=== PATIENT | male | born 1935 | race Caucasian/White ===

== ENCOUNTER 2017-02-09 09:54 | Inpatient (IN) | payer OTHER, MEDICAID ==
[~2017-02-09] VITALS: Ht 175.3 cm; Wt 75.6 kg
[2017-02-09] MEDS ORDERED: SOD CHLORIDE 0.9% 500 ML IV STA (10:03)
[2017-02-09] MEDS ORDERED: ACET-2047 PO ×2 (10:14→10:15)
[2017-02-09] MEDS ORDERED: ASPI-664 PO (10:15)
[2017-02-09] MEDS ORDERED: CARV3.1260 PO (10:16)
[2017-02-09] MEDS ORDERED: ATOR80TA75 PO (10:16)
[2017-02-09] MEDS ORDERED: MULTI PO (10:17)
[2017-02-09] MEDS ORDERED: DOCU-159 PO (10:17)
[2017-02-09] MEDS ORDERED: HYDR-906 PO (10:18)
[2017-02-09] MEDS ORDERED: LIDOCAINE 2% 20 ML UROJET SYRINGE MM ONE (10:30)
[2017-02-09 10:35] LABS: ADD SCAN DIFF NO
[2017-02-09 10:52] LABS: ALBUMIN 4.3 g/dl (3.3-4.9)
[2017-02-09 10:53] LABS: POTASSIUM 3.8 mmol/L (3.5-5.1)
[2017-02-09 10:55] LABS: BILIRUBIN,INDIRECT 0.5 mg/dl (0-1.1); BILIRUBIN,TOTAL 0.5 mg/dl (0.2-1.3); CREATININE 0.82 mg/dl (0.61-1.24)
[2017-02-09 10:56] LABS: ALBUMIN/GLOBULIN RATIO 1.34; CALCIUM 9.6 mg/dl (8.4-10.2); TOTAL PROTEIN 7.5 g/dl (6.1-8.1)
[2017-02-09 11:00] LABS: INR 1.14; PROTIME 14.6 Sec (12.2-14.2); PT RATIO 1.1
[2017-02-09 11:01] LABS: PARTIAL THROMBOPLASTIN TIME 29.5 Sec (25.0-35.0)
[2017-02-09 11:12] LABS: BASOPHILS % 0.1 % (0.0-2.0); EOSINOPHILS # 0.1 10^3/ul (0.0-0.5); EOSINOPHILS % 1.3 % (0.0-7.0); LYMPHOCYTES # 1.2 10^3/ul (0.8-2.9); LYMPHOCYTES % 17.8 % (15.0-51.0); MEAN CORPUSCULAR HEMOGLOBIN 30.8 pg (29.0-33.0); MEAN CORPUSCULAR HGB CONC 33.3 g/dl (32.0-37.0); MEAN CORPUSCULAR VOLUME 92.4 fl (82.0-101.0); MEAN PLATELET VOLUME 10.8 fl (7.4-10.4); MONOCYTE # 0.5 10^3/ul (0.3-0.9); MONOCYTES % 7.6 % (0.0-11.0); NEUTROPHIL # 4.9 10^3/ul (1.6-7.5); NEUTROPHILS % 72.9 % (39.0-77.0); PLATELET COUNT 152 10^3/UL (140-415); RED BLOOD COUNT 4.22 10^6/ul (4.70-6.10); RED CELL DISTRIBUTION WIDTH 13.3 % (11.5-14.5); WHITE BLOOD COUNT 6.7 10^3/ul (4.8-10.8)
[2017-02-09 11:32] LABS: ADD UMIC YES; URINE BILIRUBIN (Dip) NEGATIVE (NEGATIVE); URINE BLOOD (Dip) 3+ (NEGATIVE); URINE COLOR LT. RED (YELLOW); URINE GLUCOSE (Dip) NEGATIVE (NEGATIVE); URINE KETONES (Dip) NEGATIVE (NEGATIVE); URINE LEUKOCYTE ESTERASE (Dip) NEGATIVE (NEGATIVE); URINE NITRITE (Dip) POSITIVE (NEGATIVE); URINE TOTAL PROTEIN (Dip) 4+ (NEGATIVE); URINE UROBILINOGEN (Dip) 1.0 E.U./dL (0.1-1.0)
[2017-02-09 11:45] LABS: BACTERIA,URINE MANY; SQUAMOUS EPITHELIAL CELL,UR FEW; URINE RBCS >50 /HPF (0)
[2017-02-09] MEDS ORDERED: SOD CHLORIDE 0.9% 1,000 ML IV SCH (11:59)
--- NOTE | 2017-02-09 11:59 | ERA ---
ER Documentation Chief Complaint Date/Time DATE: 02/09/17 TIME: 11:56 Chief Complaint hematuria last night; no other symptoms or complaints HPI This is an 81-year-old male presents to the emergency room after being brought in by ambulance from his nursing facility for evaluation of blood in the urine. The patient denies any pain, denies any fevers or chills and was brought to the emergency room for evaluation. ROS All systems reviewed and are negative except as per history of present illness. Medications Home Meds Reported Medications Hydrocodone/Acetaminophen ([place] 5-325 Tablet) 1 Each Tablet, 1 EACH PO Q6 Y for MOD, TAB HOLD FOR SEDATION HOLD IF RR IS 12 OR BELOW AND NOTIFY MD/HOG SCRAPER 02/09/17 Multivitamins* (Theragran*) 1 Tab Tab, 1 TAB PO DAILY, TAB 02/09/17 Docusate Sodium* (Docusate Sodium*) 100 Mg Capsule, 100 MG PO BID Y for CONSTIPATION, #60 CAP 02/09/17 Carvedilol* (Carvedilol*) 3.125 Mg Tablet, 3.125 MG PO BID, #60 TAB 02/09/17 Atorvastatin* (Atorvastatin*) 80 Mg Tablet, 80 MG PO QHS, #30 TAB 02/09/17 Aspirin (Low Dose Aspirin) 81 Mg Tablet.dr, 81 MG PO DAILY, #30 TAB 02/09/17 Acetaminophen* (Acetaminophen*) 650 Mg Tablet, 650 MG PO Q4 Y for ELEVATED TEMPERATURE, #30 TAB 02/09/17 Acetaminophen* (Acetaminophen*) 650 Mg Tablet, 650 MG PO Q4 Y for MILD PAIN LEVEL 1-3, #30 TAB 02/09/17 Allergies Allergies: Coded Allergies: fish derived (Verified Allergy, Unknown, 02/09/17) shellfish derived (Verified Allergy, Unknown, 02/09/17) PMhx/Soc Medical and Surgical Hx: pt denies Surgical Hx Hx 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 Disorder: No Hx Respiratory Disorders: No Hx Cardiac Disorders: Yes (mi, htn, ) Hx Miscellaneous Medical Probl: Yes (kidney ds; dm; ) Hx Alcohol Use: No Hx Substance Use: No Hx Tobacco Use: No Smoking Status: Never smoker Physical Exam Vitals Vital Signs Date Time Temp Pulse Resp B/P Pulse Ox O2 Delivery O2 Flow Rate FiO2 02/09/17 10:02 98.3 87 16 121/73 99 Physical Exam Const: No acute distress Head: Atraumatic Eyes: Normal Conjunctiva ENT: Normal External Ears, Nose and Mouth. Neck: Full range of motion..~ No meningismus. Resp: Clear to auscultation bilaterally Cardio: Regular rate and rhythm, no murmurs Abd: Soft, non tender, non distended. Normal bowel sounds Skin: No petechiae or rashes Back: No midline or flank tenderness Ext: No cyanosis, or edema Neur: Awake and alert Psych: Normal Mood and Affect Result Diagram: 02/09/17 1020 02/09/17 1020 Results 24 hrs Laboratory Tests Test 02/09/17 10:20 02/09/17 10:55 White Blood Count 6.710^3/ul Red Blood Count 4.2210^6/ul Hemoglobin 13.0g/dl Hematocrit 39.0% Mean Corpuscular Volume 92.4fl Mean Corpuscular Hemoglobin 30.8pg Mean Corpuscular Hemoglobin Concent 33.3g/dl Red Cell Distribution Width 13.3% Platelet Count 89478^3/UL Mean Platelet Volume 10.8fl Neutrophils % 72.9% Lymphocytes % 17.8% Monocytes % 7.6% Eosinophils % 1.3% Basophils % 0.1% Nucleated Red Blood Cells % 0.0/100WBC Neutrophils # 4.910^3/ul Lymphocytes # 1.210^3/ul Monocytes # 0.510^3/ul Eosinophils # 0.110^3/ul Basophils # 0.010^3/ul Nucleated Red Blood Cells # 0.010^3/ul Prothrombin Time 14.6Sec Prothrombin Time Ratio 1.1 INR International Normalized Ratio 1.14 Activated Partial Thromboplast Time 29.5Sec Sodium Level 143mmol/L Potassium Level 3.8mmol/L Chloride Level 98mmol/L Carbon Dioxide Level 30mmol/L Anion Gap 19 Blood Urea Nitrogen 17mg/dl Creatinine 0.82mg/dl Glucose Level 96mg/dl Calcium Level 9.6mg/dl Total Bilirubin 0.5mg/dl Direct Bilirubin 0.00mg/dl Indirect Bilirubin 0.5mg/dl Aspartate Amino Transf (AST/SGOT) 33IU/L Alanine Aminotransferase (ALT/SGPT) 46IU/L Alkaline Phosphatase 79IU/L Total Protein 7.5g/dl Albumin 4.3g/dl Globulin 3.20g/dl Albumin/Globulin Ratio 1.34 Lipase 42U/L Urine Color LT. RED Urine Clarity CLEAR Urine pH 7.0 Urine Specific [place] 1.020 Urine Ketones NEGATIVE Urine Nitrite POSITIVE Urine Bilirubin NEGATIVE Urine Urobilinogen 1.0 E.U./dL Urine Leukocyte Esterase NEGATIVE Urine Microscopic RBC >50/HPF Urine Microscopic WBC 5-10/HPF Urine Squamous Epithelial Cells FEW Urine Bacteria MANY Urine Hemoglobin 3+ Urine Glucose NEGATIVE% Urine Total Protein 4+ Current Medications Medications (Trade) Dose Ordered Sig/Meli Route PRN Reason Start Time Stop Time Status Last Admin Dose Admin Sodium Chloride (NS) 500 ml @ 500 mls/hr Q1H STAT IV 02/09/17 10:03 02/09/17 11:02 DC 02/09/17 10:55 Lidocaine 20 ml 20 ml ONCE ONCE MM 02/09/17 10:30 02/09/17 10:31 DC 02/09/17 10:55 Ceftriaxone Sodium (Rocephin) 50 ml @ 100 mls/hr ONCE ONCE IVPB 02/09/17 12:00 02/09/17 12:29 UNV Procedures/MDM This 81-year-old male presents to the emergency room for evaluation of hematuria. When I evaluated this patient he was hemodynamically stable. Lab work was obtained including a urinalysis which does show nitrite positive urine with gross hematuria. This patient is denying any flank pain or back pain at this time. I have contacted his primary care physician, and given the patient' s age this patient will be admitted at this time for further imaging and workup to rule out any malignancy causing gross hematuria. Urine culture was obtained and the patient was started on Rocephin. This patient will be admitted under the care of Departure Diagnosis: Primary Impression: Hematuria Additional Impressions: Acute cystitis Normocytic anemia Condition: Stable AUGUSTUS FREDERICK DO February 09, 2017 11:59
[2017-02-09] MEDS ORDERED: ACETAMINOPHEN 325 MG TAB PO PRN ×2 (12:00→15:30)
[2017-02-09] MEDS ORDERED: CEFTRIAXONE 1 GM/50 ML (PMX) 50 ML IVPB ONE (12:00)
[2017-02-09] MEDS ORDERED: ONDANSETRON 4 MG INJ IV PRN (12:00)
[2017-02-09 12:10] VITALS: TEMP 97.8
[2017-02-09 13:53] VITALS: BP 114/69; RESP 18
[2017-02-09 14:49] VITALS: Ht 175.3 cm; Wt 75.6 kg
[2017-02-09] MEDS ORDERED: DOCUSATE SODIUM 100 MG CAP PO PRN (15:30)
[2017-02-09] MEDS ORDERED: BARIUM SULF 2% 450 ML BTL (BERRY SMOOTHIE) PO ONE (15:30)
--- NOTE | 2017-02-09 16:01 | HP ---
DATE OF ADMISSION: 02/09/2017 CHIEF COMPLAINT: Hematuria. HISTORY OF PRESENT ILLNESS: The patient is an 81-year-old gentleman well known to me. The patient has history of coronary artery disease status post non-ST elevation myocardial infarction, ischemic cardiomyopathy, hypertension, and dyslipidemia. The patient came to the ER. The patient is a resid ent of a halfway facility and was noted to have hematuria. The patient did not have any fev er or chills. No reported abdominal pain. No reported flank pain. No reported dysuria. The patie nt did not have any leg edema. The patient denies any anginal chest pain. The patient was not orth opneic and was not short of breath at rest. The patient has remained awake, alert, denies any previ ous history of similar illness. The patient was seen in the ER and was noted to have a normal white count of 6.7, hemoglobin was 13. Renal functions were normal. The patient's UA was positive for n itrite and had more than 50 RBCs, 5 to 10 WBC, many bacteria. Leukocyte esterase, however, was nega tive. The patient is being admitted for further evaluation and management. REVIEW OF SYSTEMS: As above. In addition, the patient denies any history of stroke in the past. N o history of cough. No history of focal weakness. No history of rectal bleed. No history of vomit ing or diarrhea. The patient does not have any leg edema. No resting pain in lower extremities. T he rest of review of systems unremarkable. MEDICATIONS: Please see transfer LONNIE from halfway facility. ALLERGIES: NONE. SOCIAL HISTORY: The patient used to drink beer and hard liquor; quit about 4 years ago. FAMILY HISTORY: Negative. PHYSICAL EXAMINATION: GENERAL: The patient is conscious, awake, alert, fairly oriented. VITAL SIGNS: Temperature 98.3, pulse 79, respirations 18, blood pressure 114/69, O2 saturation 97% on room air. HEENT: Atraumatic, normocephalic. Conjunctivae and lids normal. Oropharynx clear. NECK: Supple. No mass, no thyromegaly. CHEST: Fairly clear. No use of accessory muscles. CARDIOVASCULAR: S1, S2 normal. No murmur, gallop, or rub. ABDOMEN: Soft, nondistended, nontender. Bowel sounds plus. EXTREMITIES: No leg edema. Pedal pulses palpable. SKIN: Without acute rash or ulcer. NEUROLOGIC: The patient is awake, alert, fairly oriented with no gross focal deficit. LABORATORY DATA: As above. In addition, sodium 143, potassium 3.8, BUN 17, creatinine 0.8. Liver enzymes normal. IMPRESSION: 1. Hematuria. 2. Coronary artery disease status post non-ST elevation myocardial infarction with ischemic cardiom yopathy. 3. Hypertension. 4. Dyslipidemia. PLAN: The patient will be continued on Coreg and Lipitor, and we will add small dose of TAO inhibit or. We will also empirically start the patient on Rocephin after sending urine culture. We will ob tain CT of the abdomen and pelvis. We will hold off on aspirin, and we will also hold off on Loveno x for DVT prophylaxis. We will use SCD for now. A urology consult from Dr. Muhammad will be tanner d. We will also obtain echocardiogram to assess LV function. Further recommendations will depend o n patient's hospital course. Dictated By: JOHN HAN/ARCHIE Conf#: [id number] DID#: [id number]
[2017-02-09] MEDS: LISINOPRIL 5 MG TAB PO SCH (16:44)
[2017-02-09 20:08] VITALS: BP 117/63; RESP 18
[2017-02-09] MEDS: ATORVASTATIN 80 MG TAB PO SCH (20:52)
--- NOTE | 2017-02-09 21:00 | CONS ---
DATE OF ADMISSION: 02/09/2017 DATE OF CONSULTATION: 02/09/2017 REQUESTING PHYSICIAN: John Sanders MD Dear Dr. Sanders: Thank you for asking me to see this patient in urological consultation. HISTORY OF PRESENT ILLNESS: This is an 81-year-old male who is a resident of a [facility] and was brought to the emergency room at [facility] because of gross hematuri a. Therefore, a urological consultation was requested. The patient denies having any fever or chil ls, no abdominal pain, no nausea or vomiting, and no flank pain. The patient does have a history of coronary artery disease, status post non-ST elevation myocardial infarction, ischemic cardiomyopath y, hypertension, and dyslipidemia. ALLERGIES: NO KNOWN ALLERGIES. SOCIAL HISTORY: He used to drink beer and hard liquor. Quit about 40 years ago. No history of als o tobacco abuse. MEDICATIONS: Include he is already on: 1. Ceftriaxone. 2. He is on Lipitor. 3. Coreg. 4. Multivitamin. 5. Tylenol p.r.n. 6. Colace p.r.n. PHYSICAL EXAMINATION: GENERAL: Reveals an elderly male who weighs 75.6 kg. He is 69 inches tall. VITAL SIGNS: Temperature is 98, pulse 78, respiration 18, blood pressure 117/63. ABDOMEN: Soft. There is no abdominal mass palpable. However, in the midline, his kidneys, what I am feeling is like a mass along the midline of the abdomen and whether that is his rectus muscle or he has other problem in his abdomen is yet to be seen. EXTERNAL GENITALIA: Normal. The Maradiaga catheter that he has is in good position and now it is has s tarted to drain clear urine. He did have some blood in the drainage bag, but the tubing itself is c lear. RECTAL: Prostate is soft and mildly enlarged. EXTREMITIES: Reveal no edema. LABORATORY DATA: CBC shows a white count of 6.7, hemoglobin 13.0, hematocrit 39.0, platelet count 1 52,000. BUN is 17, creatinine 0.82. Electrolytes are normal. IMPRESSION: Gross hematuria, most likely related to infection; however, we will have to check other possibilities. Therefore, urine was sent for culture. We will send urine for cytology. He is goi ng to have a CT scan of the abdomen and pelvis. I have asked the nurse to clamp the Maradiaga catheter 2 hours before he goes down to have the CT scan and that would allow the bladder to get full so, if there is anything inside the bladder, we could see it. In the meantime, we shall continue his antib iotic. I will follow his urological problem with you. I do thank you for allowing me to help in his care. Dictated By: RONNIE ZELAYA MD BB/NTS Conf#: [id number] DID#: [id number] CC: JOHN SANDERS MD;*EndCC*
[2017-02-10 06:13] LABS: ADD SCAN DIFF NO
[2017-02-10 06:18] LABS: BASOPHILS % 0.2 % (0.0-2.0); EOSINOPHILS # 0.1 10^3/ul (0.0-0.5); EOSINOPHILS % 1.1 % (0.0-7.0); HEMATOCRIT 32.6 % (42.0-52.0); LYMPHOCYTES # 1.7 10^3/ul (0.8-2.9); MEAN CORPUSCULAR HEMOGLOBIN 30.8 pg (29.0-33.0); MEAN CORPUSCULAR HGB CONC 33.7 g/dl (32.0-37.0); MEAN CORPUSCULAR VOLUME 91.3 fl (82.0-101.0); MEAN PLATELET VOLUME 10.9 fl (7.4-10.4); NEUTROPHIL # 7.8 10^3/ul (1.6-7.5); NEUTROPHILS % 73.4 % (39.0-77.0); PLATELET COUNT 140 10^3/UL (140-415); RED BLOOD COUNT 3.57 10^6/ul (4.70-6.10); RED CELL DISTRIBUTION WIDTH 13.2 % (11.5-14.5); WHITE BLOOD COUNT 10.6 10^3/ul (4.8-10.8)
[2017-02-10 07:08] LABS: CALCIUM 9.1 mg/dl (8.4-10.2); CREATININE 0.95 mg/dl (0.61-1.24)
[2017-02-10 08:49] VITALS: BP 100/55; RESP 19
[2017-02-10] MEDS: MULTIVITAMINS THERAPEUTIC TAB PO SCH (09:31)
[2017-02-10] MEDS: LISINOPRIL 5 MG TAB PO SCH (09:32)
[2017-02-10] MEDS ORDERED: CEFTRIAXONE 1 GM/50 ML (PMX) 50 ML IVPB SCH (11:00)
--- NOTE | 2017-02-10 13:19 | RADRPT ---
PROCEDURE: CT Abdomen and Pelvis without contrast. CLINICAL INDICATION: Abdominal and pelvic pain. Hematuria. TECHNIQUE: CT scan of the abdomen and pelvis without contrast was performed. Coronal and sagittal reformatted images were obtained from the axial source images. Images were reviewed on a high-resolu tion PACS workstation. Total exam DLP is 591.08 mGy-cm. CTDIvol is 9.71 mGy. One or more of the fo llowing dose reduction techniques were used: Automated exposure control, adjustment of the mA and/or kV according to patient size, use of iterative reconstruction technique. COMPARISON: None. FINDINGS: The lung bases are normal. There is no pleural effusion. The liver is normal in size and attenuation. There is no focal hepatic lesion. There is ill-defined high-density material within the gallbladder which may indicate gallstones. Th ere is no evidence of cholecystitis. The bile ducts are normal. The spleen is normal in size. There is no focal splenic lesion. Both adrenals are normal with no enlargement or mass. The pancreas is unremarkable with no mass or evidence of pancreatitis. There is no solid renal mass or hydronephrosis. There is a benign cyst in the mid left kidney measur ing 3.2 cm in diameter. There is no renal calculus or ureteral calculus. The abdominal aorta is not dilated. Calcification is present in the wall of the aorta consistent wit h atherosclerosis. There is no retroperitoneal lymphadenopathy or mass. There is no pelvic lymphadenopathy or mass. A Maradiaga catheter is present in the urinary bladder. The periappendiceal region is unremarkable with no evidence of appendicitis. The bowel and mesentery are normal. There is no free fluid or free gas. There are degenerative changes of the spine and there is mild lumbar scoliosis convex right. There is no fracture or lytic lesion. IMPRESSION: 1. Possible gallstones in the gallbladder. No evidence of cholecystitis. 2. Benign cyst in the mid left kidney measuring 3.2 cm. 3. Atherosclerosis. 4. Maradiaga catheter in the bladder. 5. Degenerative changes of the spine. 6. Mild lumbar scoliosis convex right. 7. Otherwise unremarkable study. RPTAT: QQ .Luis A Carrillo MD, MD Date Time Electronically viewed and signed by .Luis A Carrillo MD, on 02/10/2017 13:18 .R/
--- NOTE | 2017-02-10 18:30 | PN ---
Date/Time of Note Date/Time of Note DATE: 02/10/17 TIME: 18:29 Assessment/Plan VTE Prophylaxis VTE Prophylaxis Intervention: other Lines/Catheters IV Catheter Type (from Nrs): Saline Lock Urinary Cath still in place: Yes Reason Cath still needed: urinary retention Assessment/Plan Assessment/Plan 1. Hematuria- hold aspirin, and Lovenox - per Urologist- Dr Muhammad - Mauro - alpohnse urine culture. - echocardiogram - CT of the abdomen and pelvis. 2. Coronary artery disease status post non-ST elevation myocardial infarction with ischemic cardiomyopathy. 3. Hypertension. - Coreg and TAO inhibitor 4. Dyslipidemia. - Lipitor 5. SCD for DVT prophylaxis . Further recommendations will depend on patient's hospital course. Exam/Review of Systems Vital Signs Vitals Vital Signs Date Time Temp Pulse Resp B/P Pulse Ox O2 Delivery O2 Flow Rate FiO2 02/10/17 08:49 99.6 81 19 100/55 95 02/09/17 12:10 Room Air Intake and Output 02/09/17 02/09/17 02/10/17 15:00 23:00 07:00 Intake Total 840 ml 500 ml Output Total 800 ml 400 ml Balance 40 ml 100 ml Results Result Diagram: 02/10/17 0440 02/10/17 0440 Results 24 hrs Laboratory Tests Test 02/10/17 04:40 White Blood Count 10.6 # Red Blood Count 3.57 L Hemoglobin 11.0 L Hematocrit 32.6 L Mean Corpuscular Volume 91.3 Mean Corpuscular Hemoglobin 30.8 Mean Corpuscular Hemoglobin Concent 33.7 Red Cell Distribution Width 13.2 Platelet Count 140 Mean Platelet Volume 10.9 H Neutrophils % 73.4 Lymphocytes % 16.0 Monocytes % 9.0 Eosinophils % 1.1 Basophils % 0.2 Nucleated Red Blood Cells % 0.0 Neutrophils # 7.8 H Lymphocytes # 1.7 Monocytes # 1.0 H Eosinophils # 0.1 Basophils # 0.0 Nucleated Red Blood Cells # 0.0 Sodium Level 135 Potassium Level 4.0 Chloride Level 102 Carbon Dioxide Level 27 Anion Gap 10 # Blood Urea Nitrogen 16 Creatinine 0.95 Glucose Level 87 Calcium Level 9.1 Medications Medications Current Medications Acetaminophen (Tylenol Tab) 650 mg Q4 PRN PO ELEVATED TEMPERATURE; Start at 15:30 Acetaminophen (Tylenol Tab) 650 mg Q4 PRN PO MILD PAIN LEVEL 1-3; Start at 15:30 Atorvastatin Calcium (Lipitor) 80 mg QHS PO Last administered on 02/09/17 20: 52; Admin Dose 80 MG; Start 02/09/17 at 21:00 Carvedilol (Coreg) 3.125 mg BID PO Last administered on 02/10/17 09:32; Admin Dose 3.125 MG; Start 02/09/17 at 21:00 Docusate Sodium (Colace) 100 mg BID PRN PO CONSTIPATION; Start 02/09/17 at 15: 30 Multivitamins Therapeutic 1 tab 1 tab DAILY PO Last administered on 02/10/17 09:31; Admin Dose 1 TAB; Start 02/10/17 at 09:00 Ceftriaxone Sodium (Rocephin) 50 ml @ 100 mls/hr Q24H IVPB Last administered on 02/10/17 11:06; Admin Dose 100 MLS/HR; Start 02/10/17 at 11:00 Lisinopril (Zestril) 5 mg DAILY PO Last administered on 02/10/17 09:32; Admin Dose 5 MG; Start 02/09/17 at 16:00 DANY MCKEON February 10, 2017 18:30
[2017-02-10 19:54] VITALS: BP_SYST 85; BP_SYST 87; BP_DIAS 52; BP_DIAS 54; RESP 20
[2017-02-10] MEDS: ATORVASTATIN 80 MG TAB PO SCH (20:26)
[2017-02-10] MEDS ORDERED: SOD CHLORIDE 0.9% 500 ML IV ONE (20:30)
[2017-02-10 22:01] VITALS: BP 101/58; PULSE 78; RESP 18
--- NOTE | 2017-02-10 23:36 | PN ---
DATE: 02/10/2017 SUBJECTIVE: This patient has had hematuria and has an indwelling Maradiaga catheter. The patient himse lf is now feeling comfortable. He denies having any pain. OBJECTIVE VITAL SIGNS: His temperature is 98.1, blood pressure 87/52, pulse is 74, respirations 20. ABDOMEN: Soft. GENITOURINARY: The Maradiaga catheter that he has is draining clear urine. LABORATORY DATA : The urine culture that he has is showing more than 100,000 colonies per mL of gra m-negative rods. The sensitivity is pending. The CBC shows a white count of 10.6, hemoglobin 11.0, hematocrit 32.6, platelet count 140,000. BUN is 16, creatinine 0.95, sodium 135, potassium 4.0, ch loride 102, CO2 of 27. IMPRESSION: Gross hematuria that is improving, and in fact the urine today is clear. The patient d oes have a urinary tract infection, and that is most likely the reason for his hematuria. PLAN: Continue the ceftriaxone that he is on and await the result of the urine sensitivity. We wou ld then take out the catheter and see if he voids on his own. Dictated By: RONNIE SIBLEY/ARCHIE Conf#: [id number] DID#: [id number]
[2017-02-11 06:30] LABS: ADD SCAN DIFF NO
[2017-02-11 06:35] LABS: BASOPHILS % 0.1 % (0.0-2.0); EOSINOPHILS # 0.2 10^3/ul (0.0-0.5); EOSINOPHILS % 1.8 % (0.0-7.0); HEMATOCRIT 32.5 % (42.0-52.0); LYMPHOCYTES # 1.5 10^3/ul (0.8-2.9); LYMPHOCYTES % 16.2 % (15.0-51.0); MEAN CORPUSCULAR HEMOGLOBIN 31.3 pg (29.0-33.0); MEAN CORPUSCULAR HGB CONC 33.8 g/dl (32.0-37.0); MEAN CORPUSCULAR VOLUME 92.6 fl (82.0-101.0); MEAN PLATELET VOLUME 11.2 fl (7.4-10.4); MONOCYTE # 0.8 10^3/ul (0.3-0.9); NEUTROPHIL # 6.5 10^3/ul (1.6-7.5); NEUTROPHILS % 72.6 % (39.0-77.0); PLATELET COUNT 127 10^3/UL (140-415); RED BLOOD COUNT 3.51 10^6/ul (4.70-6.10); RED CELL DISTRIBUTION WIDTH 13.5 % (11.5-14.5)
[2017-02-11 07:02] LABS: POTASSIUM 3.9 mmol/L (3.5-5.1)
[2017-02-11 07:05] LABS: CREATININE 0.85 mg/dl (0.61-1.24)
[2017-02-11 07:06] LABS: CALCIUM 8.9 mg/dl (8.4-10.2)
[2017-02-11 07:38] VITALS: BP 83/53; RESP 18
[2017-02-11 07:53] VITALS: BP 99/51; PULSE 85
[2017-02-11] MEDS: MULTIVITAMINS THERAPEUTIC TAB PO SCH (07:56)
[2017-02-11] MEDS: LISINOPRIL 5 MG TAB PO SCH (07:56)
[2017-02-11] MEDS: MEROPENEM 500 MG/100 ML (PMX) 100 ML IVPB SCH ×2 (12:59→20:17)
[2017-02-11 13:07] VITALS: BP 97/52
--- NOTE | 2017-02-11 14:05 | CONS ---
DATE OF ADMISSION: 02/10/2017 DATE OF CONSULTATION: 02/11/2017 TYPE OF CONSULTATION: Infectious disease. REASON FOR CONSULTATION: Antibiotic management. HISTORY OF PRESENT ILLNESS: Hoang Johnston is an 81-year-old male who comes in with hematuria and is being seen for antibiotic management. His past problems include: 1. Coronary artery disease, status post non-ST elevation myocardial infarction. 2. Ischemic cardiomyopathy. 3. Hypertension. 4. Dyslipidemia. The [facility] and was noted to have hematuria. Did not have any fever or chills, did not have leg edema, was not orthopneic. On admission white count was 6.7, hem oglobin 13, hematocrit 39, platelet count 152,000. Today's white count is 9000. BUN and creatinine are 15/0.85. Urinalysis is positive for nitrite, 5 to 10 white cells per high-power field. CT sca n of the abdomen and pelvis showed possible gallstones in the gallbladder, no evidence of cholecysti tis; benign cyst in the mid left kidney measuring 3.2 cm; atherosclerosis; Maradiaga catheter in the nito dder; degenerative changes of the spine; mild lumbar scoliosis, convex right; otherwise an unremarka ble study. The patient grew out E. coli ESBL from the urine, sensitive to amikacin, cefepime, Zosyn , and nitrofurantoin. He was seen by Dr. Muhammad in consultation. He had gross hematuria. The Fol ey catheter was clamped before the CT scan was done. He continues to have an indwelling Maradiaga. Asp irin and Lovenox were held. White count on the was 10.6 and today 9.0 was noted. The patient was placed on meropenem. PAST MEDICAL HISTORY: Operations as outlined. FAMILY HISTORY: Noncontributory. SOCIAL HISTORY: He does not smoke, drink or abuse drugs. He used to drink beer and hard liquor, bu t quit 4 years ago. ALLERGIES: NONE TO PENICILLIN, SULFA OR FOODS. MEDICATIONS: Per chart. REVIEW OF SYSTEMS: As per HPI. PHYSICAL EXAMINATION: GENERAL: The patient is a well-developed, well-nourished male, alert, responsive, in no acute distr ess. VITAL SIGNS: Stable. He is afebrile. SKIN: Without generalized rash. HEENT: Within normal limits. NECK: Supple. LYMPH NODES: None palpable. CHEST: Decreased breath sounds at the bases. HEART: Without murmur or gallop. ABDOMEN: Soft, nontender, without organosplenomegaly or masses. EXTREMITIES: Without cyanosis, clubbing, or edema. RECTAL AND GENITAL EXAM: Deferred. NEUROLOGIC EVALUATION: No focal neurological abnormalities. IMPRESSION AND PLAN: The patient comes in with gross hematuria. He was on a number of different an ticoagulants, including aspirin, and was placed on Lovenox when he came into the hospital. I will dictate my findings to Dr. Sanders and Dr. Muhammad. Dictated By: SABRINA MARRUFO MD, JD/ARCHIE Conf#: [id number] DID#: [id number]
--- NOTE | 2017-02-11 14:46 | PN ---
Date/Time of Note Date/Time of Note DATE: 02/11/17 TIME: 14:40 Assessment/Plan VTE Prophylaxis VTE Prophylaxis Intervention: SCD's Lines/Catheters IV [facility] Saline Lock Urinary Cath still in place: Yes Reason Cath still needed: urinary retention Assessment/Plan Chief Complaint/Hosp Course - E. coli E. coli ESBL urinary tract infection, change antibiotic to meropenem, Dr. Bond will be following in ID consultation - Hematuria secondary to urinary tract infection, resolving. Dr. Muhammad is following in urology consultation. - Coronary artery disease status post non-ST elevation myocardial infarction with ischemic cardiomyopathy. Continue Coreg. - Hypertension. Continue lisinopril. - Dyslipidemia. Continue statin. Further recommendations based on clinical course. Plan of care discussed with Dr. Sanders. Problems: Subjective 24 Hr Interval Summary Free Text/Dictation Borderline borderline hypotension, stable heart rate patient remains afebrile, awake alert. Exam/Review of Systems Vital Signs Vitals Vital Signs Date Time Temp Pulse Resp B/P Pulse Ox O2 Delivery O2 Flow Rate FiO2 02/11/17 13:07 97/52 02/11/17 07:53 85 02/11/17 07:38 98.9 18 94 02/10/17 22:01 Room Air Intake and Output 02/10/17 02/10/17 02/11/17 15:00 23:00 07:00 Intake Total 50 ml 1100 ml 120 ml Output Total 700 ml 1100 ml Balance 50 ml 400 ml -980 ml Exam Constitutional: alert, oriented Psych: no complaints Head: atraumatic, normocephalic ENMT: nl external ears & nose, other (Hard of hearing) Neck: non-tender, supple Respiratory: clear to auscultation Cardiovascular: regular rate and rhythm Gastrointestinal: non-tender, soft Genitourinary - Male: other (Maradiaga catheter ) Musculoskeletal: nl extremities to inspection Extremities: normal pulses 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: 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 INSPECTOR II-XII intact Results Result Diagram: 02/11/17 0540 02/11/17 0540 Results 24 hrs Laboratory Tests Test 02/11/17 05:40 White Blood Count 9.0 Red Blood Count 3.51 L Hemoglobin 11.0 L Hematocrit 32.5 L Mean Corpuscular Volume 92.6 Mean Corpuscular Hemoglobin 31.3 Mean Corpuscular Hemoglobin Concent 33.8 Red Cell Distribution Width 13.5 Platelet Count 127 L Mean Platelet Volume 11.2 H Neutrophils % 72.6 Lymphocytes % 16.2 Monocytes % 9.0 Eosinophils % 1.8 Basophils % 0.1 Nucleated Red Blood Cells % 0.0 Neutrophils # 6.5 Lymphocytes # 1.5 Monocytes # 0.8 Eosinophils # 0.2 Basophils # 0.0 Nucleated Red Blood Cells # 0.0 Sodium Level 139 Potassium Level 3.9 Chloride Level 103 Carbon Dioxide Level 28 Anion Gap 12 Blood Urea Nitrogen 15 Creatinine 0.85 Glucose Level 83 Calcium Level 8.9 Medications Medications Current Medications Acetaminophen (Tylenol Tab) 650 mg Q4 PRN PO ELEVATED TEMPERATURE; Start at 15:30 Acetaminophen (Tylenol Tab) 650 mg Q4 PRN PO MILD PAIN LEVEL 1-3; Start at 15:30 Atorvastatin Calcium (Lipitor) 80 mg QHS PO Last administered on 02/10/17 20: 26; Admin Dose 80 MG; Start 02/09/17 at 21:00 Carvedilol (Coreg) 3.125 mg BID PO Last administered on 02/10/17 09:32; Admin Dose 3.125 MG; Start 02/09/17 at 21:00 Docusate Sodium (Colace) 100 mg BID PRN PO CONSTIPATION; Start 02/09/17 at 15: 30 Multivitamins Therapeutic (Theragran) 1 tab DAILY PO Last administered on 07:56; Admin Dose 1 TAB; Start 02/10/17 at 09:00 Lisinopril 2.5 mg 2.5 mg DAILY PO ; Start 02/11/17 at 09:00 Meropenem (Merrem 500 Mg/ 100 ml (Pmx)) 100 ml @ 200 mls/hr Q12 IVPB Last administered on 02/11/17 12:59; Admin Dose 200 MLS/HR; Start 02/11/17 at 12:00 CAROLIAN FARR February 11, 2017 14:46
--- NOTE | 2017-02-11 15:59 | PN ---
DATE: 02/11/2017 SUBJECTIVE: Urinary tract infection and gross hematuria. The urine has cleared. The patient has extended-spectrum beta-lactamase urinary tract infection. OBJECTIVE VITAL SIGNS: His temperature is 98.9, blood pressure 97/52, pulse is 85, respiration is 18. ABDOMEN: Soft. GENITOURINARY: The Maradiaga catheter is draining clear urine today. LABORATORY DATA: His CBC shows a white count of 9.0, hemoglobin 11.0, hematocrit 32.5. BUN is 15, creatinine 0.85, sodium 139, potassium 3.9, chloride 103, CO2 28. Urine culture done on 02/09/2017 showed more than 100, 000 colony amount of E. coli ESBL, multidrug resistant organism, sensitive to Zosyn, imipenem, cefepime, and amikacin. The patient is already on meropenem. The recommendation is to continue present treatment. The hematuria most likely related to the urinary tract infection. Dictated By: RONNIE SIBLEY/ARCHIE Conf#: [id number] DID#: [id number] MTDD
[2017-02-11] MEDS ORDERED: SOD CHLORIDE 0.9% 500 ML IV ONE (17:00)
--- NOTE | 2017-02-11 17:13 | CONS ---
DATE OF ADMISSION: 02/10/2017 DATE OF CONSULTATION: 02/11/2017 REASON FOR CONSULTATION: Cardiomyopathy, decreased left ventricular ejection fraction. REQUESTING PHYSICIAN: John Sanders MD HISTORY OF PRESENT ILLNESS: Mr. Johnston is an 81-year-old male with a history of coronary artery disease, status post prior non-ST myocardial infarction, ischemic cardiomyopathy, decreased left josé tricular ejection fraction, hypertension, dyslipidemia who had initially presented from a skilled [facility] facility with hematuria. Initially upon arrival, temperature 98.3, blood pressure 121/73, pul se 87, respirations 16, saturating 99%. The patient's labs revealed white count 6.7, hemoglobin 13. 0, platelet count 152. Sodium 142, potassium 3.8, creatinine 0.8, BUN 17, INR of 1.1. UA positive. The patient underwent abdominopelvic CT revealing possible gallstones in gallbladder, atherosclero sis, degenerative change of the spine. The patient does not have an electrocardiogram in the chart for my review at this time. Patient subsequently has been admitted to the floor and since admit to the floor, has had some low blood pressures in the 80s and high 90s. Given these findings with ongo ing history of cardiomyopathy, cardiology consultation has been requested. PAST MEDICAL HISTORY: As above in HPI. MEDICATIONS CURRENTLY IN HOSPITAL: 1. Meropenem q.12. 2. Lisinopril 2.5 mg daily. 3. Carvedilol 3.125 mg p.o. b.i.d. 4. Lipitor 80 mg at bedtime. 5. Theragran. 6. Tylenol p.r.n. 7. Colace p.r.n. ALLERGIES: SHELLFISH. SOCIAL HISTORY: No current tobacco. History of ETOH abuse. No illicit drug use. FAMILY HISTORY: Negative for sudden cardiac or early CAD. REVIEW OF SYSTEMS: As above in HPI. CONSTITUTIONAL: No fevers, chills. PULMONARY: Shortness of breath. CARDIOVASCULAR: No current chest pain. GASTROINTESTINAL: No vomiting. GENITOURINARY: No hematuria. MUSCULOSKELETAL: Degenerative joint disease. PSYCHIATRIC: The patient denies depression. NEUROLOGIC: No documented history of CVA. PHYSICAL EXAMINATION VITAL SIGNS: Temperature of 98.9, blood pressure most recent 97/52, pulse 85, respirations 18, sat 94%. GENERAL: The patient is alert, awake, in no acute distress, somewhat lethargic. NECK: JVP approximately 9 cm water. CHEST: Fair air movement throughout. HEART: Regular rate and rhythm. Normal S1, S2, I/ systolic murmur. ABDOMEN: Positive bowel sounds, soft. EXTREMITIES: No pitting edema, 1+ pulses bilaterally posterior tibial. LABORATORY DATA: Most recently from today, sodium 139, potassium , creatinine 0.5, BUN 15. Wh ite blood count 9, hemoglobin 11, platelet count 127. IMAGING STUDIES: As above in HPI. No further imaging studies for my review at this time. ECG: No electrocardiograms for my review at this time. IMPRESSION 1. Hypotension, intermittent borderline, question relationship to ischemic cardiomyopathy. 2. Ischemic cardiomyopathy, decreased left ventricular ejection fraction approximately 35% to 40% b y preliminary echo during this hospitalization. 3. Hematuria. 4. Anemia. 5. Urinary tract infection. 6. Dyslipidemia. 7. History of coronary artery disease, status post prior non-ST elevation myocardial infarction. RECOMMENDATIONS: 1. At this time, would check a baseline EKG to assess for abnormalities and a repeat EKG in t he morning. 2. Will send troponins q.6 x2 to assure the patient has not had any recent coronary syndromes leadi ng to hypotension. 3. Follow the patient's volume status closely and will check a BNP to further assess this with poss ible need for small IV fluid bolus if pressure continues to remain marginal. 4. Will officially dictate conclusions of 2D echo done during this admission. 5. Continue to follow the patient's hematuria with ongoing evaluation by urology and continue the p atient's antibiotics and follow up all culture data. 6. Continue the patient's current Lipitor and check fasting lipid panel and adjust accordingly. 7. Continue the patient's low dose TAO inhibitor and beta nayan as tolerated for treatment of isc hemic cardiomyopathy. Thank you for allowing me to take part in the care of this patient. I will continue to follow very closely with you with further recommendations to be made as the patient progresses through his [facility] clinical course. Dictated By: KRISTA CUNNINGHAM/ARCHIE Conf#: [id number] DID#: [id number] CC: JOHN SANDERS MD;*EndCC*
--- NOTE | 2017-02-11 18:48 | RADRPT ---
Echocardiogram Report Patient Name: FAIZA JONES Gender: Male Date: 1935 Study Date: 10-Feb-2017 Phd Internship: [facility] Location: 627 Ref. Physician: JOHN ALANIS Quality: Technically Difficult Study Procedures: Transthoracic echocardiogram with complete 2D, M-Mode, and doppler examination. Indications: Cardiomyopathy. 2D/M Mode Doppler Measurement Value Normal Ranges Measurement Value Normal Ranges LVIDd 2D 4.5 3.5 - 5.6 cm LOUIE Vmax 1.6 cm2 LVIDs 2D 3.0 2.1 - 4.1 cm AV Peak Arnaud 1.2 m/sec FS 2D 34.7 % AV Peak PG 6.0 mmHg LVPWd 2D 1.1 0.6 - 1.1 cm LVOT Peak Arnaud 0.8 m/sec IVSd 2D 1.1 0.6 - 1.1 cm LVOT Peak PG 2.0 mmHg IVS/LVPW 2D 1.0 TR Peak Arnaud 1.7 m/sec AoR Diam 2D 3.7 2.0 - 3.7 cm TR Peak PG 11.0 mmHg LA/Ao 2D 1 0 - 1 RVSP 14.0 mmHg EDV 2D 92.3 cm3 ESV 2D 25.7 cm3 LA Dimen 2D 3.3 2.3 - 4.0 cm LVOT Diam 1.8 cm LVOT Area 2.5 cm2 Findings Left Ventricle: Normal left ventricular systolic function. Normal left ventricular cavity size. Mild concentric left ventricular hypertrophy. Moderate left ventricular systolic dysfunction. Ejection fraction is visually estimated at 35 %. Tissue Doppler/Mitral Doppler indices are indeterminate in this study due to the presence of fused E/A inflow velocity envelopes. Right Ventricle: Normal right ventricular size. Normal right ventricular systolic function. Left Atrium: The left atrium is normal in size. Right Atrium: The right atrium is normal in size. Mitral Valve: Mitral valve is not well visualized. Trace mitral regurgitation. Aortic Valve: Aortic cusps appear mildly calcified. Tricuspid Valve: Normal appearance and function of the tricuspid valve with trace physiologic regurgitation. Normal right ventricular systolic pressure. Estimated peak PA systolic pressure 14 mmHg. Pulmonic Valve: Pulmonic valve not well visualized. Pericardium: Small pericardial effusion. Aorta: Normal aortic root. IVC: The IVC is not well visualized. Conclusions 1.Normal left ventricular systolic function. Normal left ventricular cavity size. Mild concentric left ventricular hypertrophy. Moderate left ventricular systolic dysfunction. Ejection fraction is visually estimated at 35 %. Abnormal Diastolic Function. 2.Mitral valve is not well visualized. Trace mitral regurgitation. 3.Normal appearance and function of the tricuspid valve with trace physiologic regurgitation. Normal right ventricular systolic pressure. Estimated peak PA systolic pressure 14 mmHg. 4.Small pericardial effusion. 5.Normal right ventricular size. Normal right ventricular systolic function. Electronically Signed By: Tuan Guan 11-Feb-2017 18:47:14 -0700 Patient Name: FAIZA JONES Study Date: 10-Feb-2017 [id number]
[2017-02-11 19:37] VITALS: BP 108/58; RESP 18
[2017-02-11] MEDS: ACETAMINOPHEN 325 MG TAB PO PRN (20:18)
[2017-02-11] MEDS: ATORVASTATIN 80 MG TAB PO SCH (20:18)
[2017-02-11 21:00] VITALS: BP 99/56; RESP 18
[2017-02-12 01:00] VITALS: BP 111/54; PULSE 92; RESP 18
[2017-02-12 06:35] LABS: ADD SCAN DIFF NO
[2017-02-12 06:48] LABS: ABNORMAL IP MESSAGE 1; BASOPHILS % 0.1 % (0.0-2.0); EOSINOPHILS % 0.1 % (0.0-7.0); HEMATOCRIT 34.9 % (42.0-52.0); HEMOGLOBIN 11.6 g/dl (14.0-18.0); LYMPHOCYTES # 0.5 10^3/ul (0.8-2.9); LYMPHOCYTES % 3.7 % (15.0-51.0); MEAN CORPUSCULAR HEMOGLOBIN 31.1 pg (29.0-33.0); MEAN CORPUSCULAR HGB CONC 33.2 g/dl (32.0-37.0); MEAN CORPUSCULAR VOLUME 93.6 fl (82.0-101.0); MEAN PLATELET VOLUME 10.9 fl (7.4-10.4); MONOCYTES % 7.1 % (0.0-11.0); NEUTROPHIL # 12.9 10^3/ul (1.6-7.5); NEUTROPHILS % 88.5 % (39.0-77.0); PLATELET COUNT 132 10^3/UL (140-415); RED BLOOD COUNT 3.73 10^6/ul (4.70-6.10); RED CELL DISTRIBUTION WIDTH 13.5 % (11.5-14.5); WHITE BLOOD COUNT 14.6 10^3/ul (4.8-10.8)
[2017-02-12 07:09] LABS: CREATININE 0.9 mg/dl (0.61-1.24)
[2017-02-12 07:13] LABS: CHOL/HDL RATIO 2.2 RATIO
[2017-02-12 07:55] VITALS: BP 93/52; RESP 20
[2017-02-12] MEDS: LISINOPRIL 5 MG TAB PO SCH (09:00)
[2017-02-12] MEDS: MULTIVITAMINS THERAPEUTIC TAB PO SCH (09:00)
[2017-02-12] MEDS: MEROPENEM 500 MG/100 ML (PMX) 100 ML IVPB SCH ×2 (09:30→20:54)
[2017-02-12 09:35] VITALS: BP 108/58; PULSE 92; RESP 22
--- NOTE | 2017-02-12 10:33 | PN ---
Date/Time of Note Date/Time of Note DATE: 02/12/17 TIME: 10:32 Assessment/Plan VTE Prophylaxis VTE Prophylaxis Intervention: other Lines/Catheters IV C[facility] Type [facility] Saline Lock Urinary Cath still in place: Yes Reason Cath still needed: skin wounds contaminated by urine Assessment/Plan Chief Complaint/Hosp Course - E. coli E. coli ESBL urinary tract infection, change antibiotic to meropenem, Dr. Bond will be following in ID consultation - Hematuria secondary to urinary tract infection, resolving. Dr. Muhammad is following in urology consultation. - Coronary artery disease status post non-ST elevation myocardial infarction with ischemic cardiomyopathy. Continue Coreg. - Hypertension. Continue lisinopril. - Dyslipidemia. Continue statin. Problems: Subjective 24 Hr Interval Summary Free Text/Dictation Patient became less responsive and hypoxic Exam/Review of Systems Vital Signs Vitals Vital Signs Date Time Temp Pulse Resp B/P Pulse Ox O2 Delivery O2 Flow Rate FiO2 02/12/17 09:35 92 22 108/58 98 Mask Non Rebreather 02/12/17 08:29 15.0 100 02/12/17 07:55 99.4 Intake and Output 02/11/17 02/11/17 02/12/17 15:00 23:00 07:00 Intake Total 100 ml 1160 ml 480 ml Output Total 400 ml 300 ml Balance 100 ml 760 ml 180 ml Exam Constitutional: well developed Head: atraumatic, normocephalic Neck: supple Respiratory: clear to auscultation Cardiovascular: regular rate and rhythm Gastrointestinal: non-tender, soft Extremities: normal pulses Results Result Diagram: 02/12/17 0510 02/12/17 0510 Results 24 hrs Laboratory Tests Test 02/11/17 18:55 02/12/17 01:10 02/12/17 05:10 Troponin I < 0.012 < 0.012 B-Type Natriuretic Peptide 182 White Blood Count 14.6 #H Red Blood Count 3.73 L Hemoglobin 11.6 L Hematocrit 34.9 L Mean Corpuscular Volume 93.6 Mean Corpuscular Hemoglobin 31.1 Mean Corpuscular Hemoglobin Concent 33.2 Red Cell Distribution Width 13.5 Platelet Count 132 L Mean Platelet Volume 10.9 H Neutrophils % 88.5 H Lymphocytes % 3.7 L Monocytes % 7.1 Eosinophils % 0.1 Basophils % 0.1 Nucleated Red Blood Cells % 0.0 Neutrophils # 12.9 H Lymphocytes # 0.5 L Monocytes # 1.0 H Eosinophils # 0.0 Basophils # 0.0 Nucleated Red Blood Cells # 0.0 Sodium Level 137 Potassium Level 4.0 Chloride Level 104 Carbon Dioxide Level 28 Anion Gap 9 Blood Urea Nitrogen 18 Creatinine 0.90 Glucose Level 106 Calcium Level 9.0 Triglycerides Level 55 Cholesterol Level 73 L LDL Cholesterol, Calculated 29 HDL Cholesterol 33 Cholesterol/HDL Ratio 2.2 Medications Medications Current Medications Acetaminophen (Tylenol Tab) 650 mg Q4 PRN PO ELEVATED TEMPERATURE; Start at 15:30 Acetaminophen (Tylenol Tab) 650 mg Q4 PRN PO MILD PAIN LEVEL 1-3 Last administered on 02/11/17 20:18; Admin Dose 650 MG; Start 02/09/17 at 15:30 Atorvastatin Calcium (Lipitor) 80 mg QHS PO Last administered on 02/11/17 20: 18; Admin Dose 80 MG; Start 02/09/17 at 21:00 Docusate Sodium (Colace) 100 mg BID PRN PO CONSTIPATION; Start 02/09/17 at 15: 30 Multivitamins Therapeutic (Theragran) 1 tab DAILY PO Last administered on 07:56; Admin Dose 1 TAB; Start 02/10/17 at 09:00 Lisinopril 2.5 mg 2.5 mg DAILY PO ; Start 02/11/17 at 09:00 Meropenem (Merrem 500 Mg/ 100 ml (Pmx)) 100 ml @ 200 mls/hr Q12 IVPB Last administered on 02/12/17 09:30; Admin Dose 200 MLS/HR; Start 02/11/17 at 12:00 Carvedilol (Coreg) 1.5625 mg BID PO ; Start 02/11/17 at 21:00 MILTON JURADO February 12, 2017 10:33
[2017-02-12 16:30] VITALS: BP 106/59; PULSE 79; RESP 22
--- NOTE | 2017-02-12 16:34 | CONS ---
Date/Time of Note Date/Time of Note DATE: 02/12/17 TIME: 16:30 Assessment/Plan Assessment/Plan Additional Assessment/Plan CAD Ischemic cardiomyopathy Anemia UTI Dyslipidemia Hemodynamically stable Continue Coreg and Lisinopril Continue Lipitor Continue Antibiotics Continue tamsulosin Consultation Date/Type/Reason Admit Date/Time February 10, 2017 at 10:43 Psychological: no complaints Social History Smoking Status: Never smoker Exam/Review of Systems Vital Signs Vitals Vital Signs Date Time Temp Pulse Resp B/P Pulse Ox O2 Delivery O2 Flow Rate FiO2 02/12/17 09:35 92 22 108/58 98 Mask Non Rebreather 02/12/17 08:29 15.0 100 02/12/17 07:55 99.4 Intake and Output 02/11/17 02/11/17 02/12/17 15:00 23:00 07:00 Intake Total 100 ml 1160 ml 480 ml Output Total 400 ml 300 ml Balance 100 ml 760 ml 180 ml Exam Constitutional: alert Head: atraumatic, normocephalic Neck: non-tender, supple Respiratory: clear to auscultation Cardiovascular: regular rate and rhythm Gastrointestinal: nl liver, spleen, non-tender, soft Extremities: normal pulses Results Result Diagram: 02/12/17 0510 02/12/17 0510 Results 24 hrs Laboratory Tests Test 02/11/17 18:55 02/12/17 01:10 02/12/17 05:10 Troponin I < 0.012 < 0.012 B-Type Natriuretic Peptide 182 White Blood Count 14.6 #H Red Blood Count 3.73 L Hemoglobin 11.6 L Hematocrit 34.9 L Mean Corpuscular Volume 93.6 Mean Corpuscular Hemoglobin 31.1 Mean Corpuscular Hemoglobin Concent 33.2 Red Cell Distribution Width 13.5 Platelet Count 132 L Mean Platelet Volume 10.9 H Neutrophils % 88.5 H Lymphocytes % 3.7 L Monocytes % 7.1 Eosinophils % 0.1 Basophils % 0.1 Nucleated Red Blood Cells % 0.0 Neutrophils # 12.9 H Lymphocytes # 0.5 L Monocytes # 1.0 H Eosinophils # 0.0 Basophils # 0.0 Nucleated Red Blood Cells # 0.0 Sodium Level 137 Potassium Level 4.0 Chloride Level 104 Carbon Dioxide Level 28 Anion Gap 9 Blood Urea Nitrogen 18 Creatinine 0.90 Glucose Level 106 Calcium Level 9.0 Triglycerides Level 55 Cholesterol Level 73 L LDL Cholesterol, Calculated 29 HDL Cholesterol 33 Cholesterol/HDL Ratio 2.2 Medications Medications Current Medications Acetaminophen (Tylenol Tab) 650 mg Q4 PRN PO ELEVATED TEMPERATURE; Start at 15:30 Acetaminophen (Tylenol Tab) 650 mg Q4 PRN PO MILD PAIN LEVEL 1-3 Last administered on 02/11/17 20:18; Admin Dose 650 MG; Start 02/09/17 at 15:30 Atorvastatin Calcium (Lipitor) 80 mg QHS PO Last administered on 02/11/17 20: 18; Admin Dose 80 MG; Start 02/09/17 at 21:00 Docusate Sodium (Colace) 100 mg BID PRN PO CONSTIPATION; Start 02/09/17 at 15: 30 Multivitamins Therapeutic (Theragran) 1 tab DAILY PO Last administered on 07:56; Admin Dose 1 TAB; Start 02/10/17 at 09:00 Lisinopril 2.5 mg 2.5 mg DAILY PO ; Start 02/11/17 at 09:00 Meropenem (Merrem 500 Mg/ 100 ml (Pmx)) 100 ml @ 200 mls/hr Q12 IVPB Last administered on 02/12/17 09:30; Admin Dose 200 MLS/HR; Start 02/11/17 at 12:00 Carvedilol (Coreg) 1.5625 mg BID PO ; Start 02/11/17 at 21:00 Tamsulosin HCl (Flomax) 0.4 mg HS PO ; Start 02/12/17 at 21:00 DARYL ALMAGUER M.D. February 12, 2017 16:34
--- NOTE | 2017-02-12 17:10 | PN ---
DATE: 02/12/2017 SUBJECTIVE: The patient has had hematuria and urinary tract infection. The patient does have an in dwelling Maradiaga catheter and at the present he appears to be comfortable, and he is getting a respira tory treatment. OBJECTIVE: VITAL SIGNS: His temperature is 99.4, pulse is 92, respirations 22, blood pressure 108/58. ABDOMEN: Soft. The Maradiaga catheter is draining clear urine. LABORATORY DATA: The CBC shows a white count of 14.6, hemoglobin 11.6, hematocrit 34.9. BUN is 18, creatinine 0.9. Electrolytes are normal. The urine culture is an E. coli ESBL and the patient is on meropenem for that. The patient did have a CT scan of the abdomen and pelvis and that showed an enlarged prostate, but it is not too big to cause retention by itself. He does have also a history of a stroke in the past, so to try to remove his Maradiaga catheter I will s tart him on Flomax, and then maybe in a couple of days discontinue the Maradiaga catheter and see if he is able to void and also check his postvoid residual. Dictated By: RONNIE SIBLEY/ARCHIE Conf#: [id number] DID#: [id number]
[2017-02-12 20:00] VITALS: BP 100/58; RESP 18
[2017-02-12] MEDS: ATORVASTATIN 80 MG TAB PO SCH (20:59)
[2017-02-12] MEDS: TAMSULOSIN (SR) 0.4 MG CAP PO SCH (20:59)
[2017-02-12] MEDS: ACETAMINOPHEN 325 MG TAB PO PRN (21:04)
--- NOTE | 2017-02-12 21:52 | PN ---
DATE: 02/12/2017 SUBJECTIVE: The patient is more lethargic today. No fevers. Looks comfortable. WBC increased to 14.6, platelets 133, neutrophils 88.5, BUN 18, creatinine 0.90. ANTIMICROBIALS: Meropenem. MICROBIOLOGY: Urine culture grew E. coli ESBL. INDWELLINGS: Maradiaga catheter. PHYSICAL EXAMINATION: GENERAL: This is a fragile, chronically ill-appearing, elderly man who is in no distress. HEENT: Head atraumatic, normocephalic. Sclerae anicteric. Buccal mucosa dry. NECK: Supple, trachea midline. CHEST: Rise symmetrical. Breath sounds diminished to bases. HEART: S1, S2. ABDOMEN: Soft. Bowel tones present. EXTREMITIES: Without cyanosis. ASSESSMENT: 1. Sepsis with acute encephalopathy and leukocytosis, rule out aspiration. 2. Escherichia coli extended-spectrum beta-lactamase urinary tract infection. 3. Dementia. 4. Dysphagia. 5. Coronary artery disease, status post myocardial infarction. 6. Nonischemic cardiomyopathy. PLAN: The patient is on appropriate antimicrobials. Urology and cardiology on case. We are going to order a chest x-ray and blood cultures. Continue him on current antimicrobials for now. Follow labs in the morning. Dictated By: JAQUELIN SAMAYOA PATCHING MACHINE OPERATOR for SABRINA TORRES/ARCHIE Conf#: [id number] DID#: [id number]
[2017-02-13 05:39] LABS: ADD SCAN DIFF NO
[2017-02-13 05:41] LABS: BASOPHILS % 0.2 % (0.0-2.0); EOSINOPHILS % 0.2 % (0.0-7.0); HEMATOCRIT 32.9 % (42.0-52.0); HEMOGLOBIN 11.1 g/dl (14.0-18.0); LYMPHOCYTES # 0.8 10^3/ul (0.8-2.9); LYMPHOCYTES % 4.6 % (15.0-51.0); MEAN CORPUSCULAR HEMOGLOBIN 31.4 pg (29.0-33.0); MEAN CORPUSCULAR HGB CONC 33.7 g/dl (32.0-37.0); MEAN CORPUSCULAR VOLUME 92.9 fl (82.0-101.0); MEAN PLATELET VOLUME 10.6 fl (7.4-10.4); MONOCYTE # 1.1 10^3/ul (0.3-0.9); MONOCYTES % 6.1 % (0.0-11.0); PLATELET COUNT 125 10^3/UL (140-415); RED BLOOD COUNT 3.54 10^6/ul (4.70-6.10); RED CELL DISTRIBUTION WIDTH 13.3 % (11.5-14.5); WHITE BLOOD COUNT 18.1 10^3/ul (4.8-10.8)
[2017-02-13 07:46] VITALS: BP 94/53; RESP 18
[2017-02-13] MEDS: LISINOPRIL 5 MG TAB PO SCH (09:00)
[2017-02-13] MEDS: MEROPENEM 500 MG/100 ML (PMX) 100 ML IVPB SCH ×2 (09:44→21:03)
[2017-02-13] MEDS: MULTIVITAMINS THERAPEUTIC TAB PO SCH (09:44)
[2017-02-13 09:46] VITALS: BP 99/56; PULSE 86
--- NOTE | 2017-02-13 10:22 | RADRPT ---
PROCEDURE: XR Chest. CLINICAL INDICATION: Shortness of breath. TECHNIQUE: A single portable view of the chest was obtained. COMPARISON: None FINDINGS: The aorta is tortuous and atherosclerotic. The cardiomediastinal silhouette is otherwise borderline in size. Patchy air space disease in the right lower lung zone is seen. The remaining lungs and ple ural spaces are clear. The soft tissues and osseous structures demonstrate benign age related senes cent changes. IMPRESSION: Patchy infiltrate in the right lower lung zone. A short interval follow-up after treatment is recom mended. RPTAT: HPNM Physician Jessica Date Time Electronically viewed and signed by Physician Jessica on 02/13/2017 10:22 /
--- NOTE | 2017-02-13 11:14 | PN ---
Date/Time of Note Date/Time of Note DATE: 02/13/17 TIME: 11:14 Assessment/Plan VTE Prophylaxis VTE Prophylaxis Intervention: other Lines/Catheters IV C[facility]ter Type (from [facility]): Peripheral IV Urinary Cath still in place: Yes Reason Cath still needed: skin wounds contaminated by urine Assessment/Plan Chief Complaint/Hosp Course - E. coli E. coli ESBL urinary tract infection, change antibiotic to meropenem, Dr. Bond will be following in ID consultation - Hematuria secondary to urinary tract infection, resolving. Dr. Muhammad is following in urology consultation. - Coronary artery disease status post non-ST elevation myocardial infarction with ischemic cardiomyopathy. Continue Coreg. - Hypertension. Continue lisinopril. - Dyslipidemia. Continue statin. Problems: Subjective 24 Hr Interval Summary Free Text/Dictation Patient is doing better, wants to be discharged Exam/Review of Systems Vital Signs Vitals Vital Signs Date Time Temp Pulse Resp B/P Pulse Ox O2 Delivery O2 Flow Rate FiO2 02/13/17 09:46 86 99/56 93 Room Air Nasal Cannula 02/13/17 07:46 97.8 18 02/13/17 05:35 10.0 02/12/17 08:29 100 Intake and Output 02/12/17 02/12/17 02/13/17 15:00 23:00 07:00 Intake Total 100 ml 120 ml Output Total 280 ml 400 ml Balance -180 ml -280 ml Exam Constitutional: well developed Head: atraumatic, normocephalic Neck: supple Respiratory: diminished breath sounds Cardiovascular: regular rate and rhythm Gastrointestinal: non-tender, soft Extremities: normal pulses Results Result Diagram: 02/13/17 0418 02/12/17 0510 Results 24 hrs Laboratory Tests Test 02/13/17 04:18 White Blood Count 18.1 #H Red Blood Count 3.54 L Hemoglobin 11.1 L Hematocrit 32.9 L Mean Corpuscular Volume 92.9 Mean Corpuscular Hemoglobin 31.4 Mean Corpuscular Hemoglobin Concent 33.7 Red Cell Distribution Width 13.3 Platelet Count 125 L Mean Platelet Volume 10.6 H Neutrophils % 88.0 H Lymphocytes % 4.6 L Monocytes % 6.1 Eosinophils % 0.2 Basophils % 0.2 Nucleated Red Blood Cells % 0.0 Neutrophils # 16.0 H Lymphocytes # 0.8 Monocytes # 1.1 H Eosinophils # 0.0 Basophils # 0.0 Nucleated Red Blood Cells # 0.0 Medications Medications Current Medications Acetaminophen (Tylenol Tab) 650 mg Q4 PRN PO ELEVATED TEMPERATURE; Start at 15:30 Acetaminophen (Tylenol Tab) 650 mg Q4 PRN PO MILD PAIN LEVEL 1-3 Last administered on 02/12/17 21:04; Admin Dose 650 MG; Start 02/09/17 at 15:30 Atorvastatin Calcium (Lipitor) 80 mg QHS PO Last administered on 02/12/17 20: 59; Admin Dose 80 MG; Start 02/09/17 at 21:00 Docusate Sodium (Colace) 100 mg BID PRN PO CONSTIPATION; Start 02/09/17 at 15: 30 Multivitamins Therapeutic (Theragran) 1 tab DAILY PO Last administered on 09:44; Admin Dose 1 TAB; Start 02/10/17 at 09:00 Lisinopril 2.5 mg 2.5 mg DAILY PO ; Start 02/11/17 at 09:00 Meropenem (Merrem 500 Mg/ 100 ml (Pmx)) 100 ml @ 200 mls/hr Q12 IVPB Last administered on 02/13/17 09:44; Admin Dose 200 MLS/HR; Start 02/11/17 at 12:00 Carvedilol (Coreg) 1.5625 mg BID PO ; Start 02/11/17 at 21:00 Tamsulosin HCl (Flomax) 0.4 mg HS PO Last administered on 02/12/17 20:59; Admin Dose 0.4 MG; Start 02/12/17 at 21:00 MILTON JURADO February 13, 2017 11:14
[2017-02-13] MEDS ORDERED: VANCOMYCIN IV PER PHARMACY XX SCH (11:30)
[2017-02-13] MEDS ORDERED: VANCOMYCIN 1.5 GM in SOD CHLORIDE 0.9% 250 ML IVPB SCH (13:00)
--- NOTE | 2017-02-13 14:39 | CONS ---
Date/Time of Note Date/Time of Note DATE: 02/13/17 TIME: 14:38 Assessment/Plan Assessment/Plan Additional Assessment/Plan CAD with Ischemic cardiomyopathy with EF 35% Anemia UTI Dyslipidemia Hemodynamically stable Continue Coreg and Lisinopril Continue Lipitor Continue Antibiotics Continue tamsulosin Consultation Date/Type/Reason Admit Date/Time February 10, 2017 at 10:43 Initial Consult Date Exam/Review of Systems Vital Signs Vitals Vital Signs Date Time Temp Pulse Resp B/P Pulse Ox O2 Delivery O2 Flow Rate FiO2 02/13/17 09:46 86 99/56 93 Room Air Nasal Cannula 02/13/17 07:46 97.8 18 02/13/17 05:35 10.0 02/12/17 08:29 100 Intake and Output 02/12/17 02/12/17 02/13/17 15:00 23:00 07:00 Intake Total 100 ml 120 ml Output Total 280 ml 400 ml Balance -180 ml -280 ml Results Result Diagram: 02/13/17 0418 02/12/17 0510 Results 24 hrs Laboratory Tests Test 02/13/17 04:18 White Blood Count 18.1 #H Red Blood Count 3.54 L Hemoglobin 11.1 L Hematocrit 32.9 L Mean Corpuscular Volume 92.9 Mean Corpuscular Hemoglobin 31.4 Mean Corpuscular Hemoglobin Concent 33.7 Red Cell Distribution Width 13.3 Platelet Count 125 L Mean Platelet Volume 10.6 H Neutrophils % 88.0 H Lymphocytes % 4.6 L Monocytes % 6.1 Eosinophils % 0.2 Basophils % 0.2 Nucleated Red Blood Cells % 0.0 Neutrophils # 16.0 H Lymphocytes # 0.8 Monocytes # 1.1 H Eosinophils # 0.0 Basophils # 0.0 Nucleated Red Blood Cells # 0.0 Medications Medications Current Medications Acetaminophen (Tylenol Tab) 650 mg Q4 PRN PO ELEVATED TEMPERATURE; Start at 15:30 Acetaminophen (Tylenol Tab) 650 mg Q4 PRN PO MILD PAIN LEVEL 1-3 Last administered on 02/12/17 21:04; Admin Dose 650 MG; Start 02/09/17 at 15:30 Atorvastatin Calcium (Lipitor) 80 mg QHS PO Last administered on 02/12/17 20: 59; Admin Dose 80 MG; Start 02/09/17 at 21:00 Docusate Sodium (Colace) 100 mg BID PRN PO CONSTIPATION; Start 02/09/17 at 15: 30 Multivitamins Therapeutic (Theragran) 1 tab DAILY PO Last administered on 09:44; Admin Dose 1 TAB; Start 02/10/17 at 09:00 Lisinopril 2.5 mg 2.5 mg DAILY PO ; Start 02/11/17 at 09:00 Meropenem (Merrem 500 Mg/ 100 ml (Pmx)) 100 ml @ 200 mls/hr Q12 IVPB Last administered on 02/13/17 09:44; Admin Dose 200 MLS/HR; Start 02/11/17 at 12:00 Carvedilol (Coreg) 1.5625 mg BID PO ; Start 02/11/17 at 21:00 Tamsulosin HCl 0.4 mg 0.4 mg HS PO Last administered on 02/12/17 20:59; Admin Dose 0.4 MG; Start 02/12/17 at 21:00 Vancomycin HCl 1.5 gm/Sodium Chloride 250 ml @ 83.333 mls/ hr ONCE@13 IVPB Last administered on 02/13/17 13:20; Admin Dose 83.333 MLS/HR; Start 02/13/17 at 13:00; Stop 02/13/17 at 18:00 Vancomycin HCl/ Sodium Chloride (Vancocin/NS) 150 ml @ 75 mls/hr Q12H IVPB ; Start 02/14/17 at 01:00 DARYL ALMAGUER M.D. February 13, 2017 14:39
[2017-02-13] MEDS: ACETAMINOPHEN 325 MG TAB PO PRN (17:37)
--- NOTE | 2017-02-13 18:22 | PN ---
DATE: 02/13/2017 SUBJECTIVE: Patient is more awake and responsive, follows commands, no fevers. DIAGNOSTICS: Chest x-ray from yesterday revealed patchy infiltrate in the right lower zone. MICROBIOLOGY: Urine culture on admission grew E. coli ESBL. ANTIMICROBIALS: The patient was started on vancomycin today he is also on Merrem. VITAL SIGNS: WBC today 18.1 with platelets 125, neutrophils 88, BUN 18, creatinine 0.90. INDWELLINGS: Maradiaga catheter. PHYSICAL EXAMINATION: GENERAL: Fragile chronically ill-appearing elderly man who is awake, in no distress. HEENT: Head atraumatic, normocephalic. Sclerae anicteric. Buccal mucosa dry. NECK: Supple, trachea midline. CHEST: Rise symmetrical. Breath sounds with scattered rhonchi. HEART: S1, S2. ABDOMEN: Soft, bowel tones present. EXTREMITIES: No cyanosis. ASSESSMENT: 1. Sepsis. 2. Healthcare-associated pneumonia, possibly ongoing aspiration. 3. Escherichia coli extended-spectrum beta-lactamase urinary tract infection. 4. Dementia. 5. Dysphagia. PLAN: The patient remains stable. We will continue him on current antimicrobials. Continue anti-a spiration measures. Await for swallow evaluation. Dictated By: JAQUELIN SAMAYOA [employer]SEMBLER for SABRINA TORRES/ARCHIE Conf#: [id number] DID#: [id number]
[2017-02-13] MEDS: ATORVASTATIN 80 MG TAB PO SCH (21:03)
[2017-02-13] MEDS: TAMSULOSIN (SR) 0.4 MG CAP PO SCH (21:03)
[2017-02-13 21:13] VITALS: BP 97/53; RESP 21
[2017-02-14] MEDS: VANCOMYCIN 750 MG in SOD CHLORIDE 0.9% 150 ML IVPB SCH ×2 (01:04→12:07)
[2017-02-14 06:02] LABS: ADD SCAN DIFF NO
[2017-02-14 06:06] LABS: BASOPHILS % 0.2 % (0.0-2.0); EOSINOPHILS # 0.1 10^3/ul (0.0-0.5); EOSINOPHILS % 1.3 % (0.0-7.0); HEMATOCRIT 31.8 % (42.0-52.0); HEMOGLOBIN 10.7 g/dl (14.0-18.0); LYMPHOCYTES # 1.2 10^3/ul (0.8-2.9); LYMPHOCYTES % 11.3 % (15.0-51.0); MEAN CORPUSCULAR HEMOGLOBIN 31.2 pg (29.0-33.0); MEAN CORPUSCULAR HGB CONC 33.6 g/dl (32.0-37.0); MEAN CORPUSCULAR VOLUME 92.7 fl (82.0-101.0); MEAN PLATELET VOLUME 10.6 fl (7.4-10.4); MONOCYTE # 0.6 10^3/ul (0.3-0.9); MONOCYTES % 5.5 % (0.0-11.0); NEUTROPHIL # 8.6 10^3/ul (1.6-7.5); NEUTROPHILS % 81.1 % (39.0-77.0); PLATELET COUNT 120 10^3/UL (140-415); RED BLOOD COUNT 3.43 10^6/ul (4.70-6.10); RED CELL DISTRIBUTION WIDTH 13.2 % (11.5-14.5); WHITE BLOOD COUNT 10.6 10^3/ul (4.8-10.8)
[2017-02-14 06:39] LABS: POTASSIUM 3.7 mmol/L (3.5-5.1)
[2017-02-14 06:42] LABS: CALCIUM 8.7 mg/dl (8.4-10.2); CREATININE 0.64 mg/dl (0.61-1.24)
[2017-02-14 07:41] VITALS: BP 107/62; RESP 18
[2017-02-14] MEDS: MEROPENEM 500 MG/100 ML (PMX) 100 ML IVPB SCH ×2 (09:38→21:26)
[2017-02-14] MEDS: MULTIVITAMINS THERAPEUTIC TAB PO SCH (09:38)
[2017-02-14] MEDS: LISINOPRIL 5 MG TAB PO SCH (09:39)
--- NOTE | 2017-02-14 13:05 | CONS ---
Date/Time of Note Date/Time of Note DATE: 02/14/17 TIME: 13:03 Assessment/Plan Assessment/Plan Chief Complaint/Hosp Course SUBJECTIVE: Patient is awake and responsive, wants to go home, follows commands , no fevers. DIAGNOSTICS: Chest x-ray from 02/12 revealed patchy infiltrate in the right lower zone. MICROBIOLOGY: Urine culture on admission grew E. coli ESBL. ANTIMICROBIALS: Vancomycin Merrem. INDWELLINGS: Maradiaga catheter. PHYSICAL EXAMINATION: GENERAL: Fragile chronically ill-appearing elderly man who is awake, in no distress. HEENT: Head atraumatic, normocephalic. Sclerae anicteric. Buccal mucosa dry. NECK: Supple, trachea midline. CHEST: Rise symmetrical. Breath sounds with scattered rhonchi. HEART: S1, S2. ABDOMEN: Soft, bowel tones present. EXTREMITIES: No cyanosis. ASSESSMENT: 1. Sepsis. 2. Healthcare-associated pneumonia, possibly ongoing aspiration. 3. Escherichia coli extended-spectrum beta-lactamase urinary tract infection. 4. Dementia. 5. Dysphagia. PLAN: The patient remains stable. We will continue him on current antimicrobials. Continue anti-aspiration measures. Await for swallow evaluation. staff/pt Problems: Consultation Date/Type/Reason Admit Date/Time February 10, 2017 at 10:43 Initial Consult Date Type of Consultation: ID Exam/Review of Systems Vital Signs Vitals Vital Signs Date Time Temp Pulse Resp B/P Pulse Ox O2 Delivery O2 Flow Rate FiO2 02/14/17 07:41 98.2 71 18 107/62 93 02/13/17 22:00 Nasal Cannula 2.0 02/12/17 08:29 100 Intake and Output 02/13/17 02/13/17 02/14/17 15:00 23:00 07:00 Intake Total 100 ml 550 ml 450 ml Output Total 600 ml 400 ml Balance 100 ml -50 ml 50 ml Results Result Diagram: 02/14/17 0530 02/14/17 0530 Results 24 hrs Laboratory Tests Test 02/14/17 05:30 White Blood Count 10.6 # Red Blood Count 3.43 L Hemoglobin 10.7 L Hematocrit 31.8 L Mean Corpuscular Volume 92.7 Mean Corpuscular Hemoglobin 31.2 Mean Corpuscular Hemoglobin Concent 33.6 Red Cell Distribution Width 13.2 Platelet Count 120 L Mean Platelet Volume 10.6 H Neutrophils % 81.1 H Lymphocytes % 11.3 L Monocytes % 5.5 Eosinophils % 1.3 Basophils % 0.2 Nucleated Red Blood Cells % 0.0 Neutrophils # 8.6 H Lymphocytes # 1.2 Monocytes # 0.6 Eosinophils # 0.1 Basophils # 0.0 Nucleated Red Blood Cells # 0.0 Sodium Level 141 Potassium Level 3.7 Chloride Level 102 Carbon Dioxide Level 28 Anion Gap 15 Blood Urea Nitrogen 28 H Creatinine 0.64 Glucose Level 88 Calcium Level 8.7 Medications Medications Current Medications Acetaminophen (Tylenol Tab) 650 mg Q4 PRN PO ELEVATED TEMPERATURE; Start at 15:30 Acetaminophen (Tylenol Tab) 650 mg Q4 PRN PO MILD PAIN LEVEL 1-3 Last administered on 02/13/17 17:37; Admin Dose 650 MG; Start 02/09/17 at 15:30 Atorvastatin Calcium (Lipitor) 80 mg QHS PO Last administered on 02/13/17 21: 03; Admin Dose 80 MG; Start 02/09/17 at 21:00 Docusate Sodium (Colace) 100 mg BID PRN PO CONSTIPATION; Start 02/09/17 at 15: 30 Multivitamins Therapeutic (Theragran) 1 tab DAILY PO Last administered on 09:38; Admin Dose 1 TAB; Start 02/10/17 at 09:00 Lisinopril 2.5 mg 2.5 mg DAILY PO Last administered on 02/14/17 09:39; Admin Dose 2.5 MG; Start 02/11/17 at 09:00 Meropenem (Merrem 500 Mg/ 100 ml (Pmx)) 100 ml @ 200 mls/hr Q12 IVPB Last administered on 02/14/17 09:38; Admin Dose 200 MLS/HR; Start 02/11/17 at 12:00 Carvedilol (Coreg) 1.5625 mg BID PO Last administered on 02/14/17 09:39; Admin Dose 1.5625 MG; Start 02/11/17 at 21:00 Tamsulosin HCl 0.4 mg 0.4 mg HS PO Last administered on 02/13/17 21:03; Admin Dose 0.4 MG; Start 02/12/17 at 21:00 Vancomycin HCl/ Sodium Chloride (Vancocin/NS) 150 ml @ 75 mls/hr Q12H IVPB Last administered on 02/14/17t 12:07; Admin Dose 75 MLS/HR; Start 02/14/17 at 01 :00 Miscellaneous Information (*Rx Drug Level Order Reminder*) VANCOMYCIN TROUGH AT 0000 ONCE ONCE XX ; Start 02/15/17 at 00:00; Stop 02/15/17 at 00:01 JAQUELIN SAMAYOA NP February 14, 2017 13:05
--- NOTE | 2017-02-14 18:08 | CONS ---
Date/Time of Note Date/Time of Note DATE: 02/14/17 TIME: 18:03 Assessment/Plan Assessment/Plan Chief Complaint/Hosp Course IMPRESSION 1. Hypotension, intermittent borderline, question relationship to ischemic cardiomyopathy. 2. Ischemic cardiomyopathy, decreased left ventricular ejection fraction approximately 35% to 40% by echo during this hospitalization. 3. Hematuria-followed by neurologfy 4. Anemia. 5. Urinary tract infection. 6. Dyslipidemia. 7. History of coronary artery disease, status post prior non-ST elevation myocardial infarction. 8. PNA REcc: -Continue current low dose coreg/ACEI and follow BP closely -Follow volume status closely -Continue statin -Continue abx's and f/u cx data Problems: Consultation Date/Type/Reason Admit Date/Time February 10, 2017 at 10:43 Initial Consult Date 02/10/2017 Type of Consultation: Cardiology Reason for Consultation cardiomyopathy Referring Provider: JOHN ALANIS MD Exam/Review of Systems Vital Signs Vitals Vital Signs Date Time Temp Pulse Resp B/P Pulse Ox O2 Delivery O2 Flow Rate FiO2 02/14/17 07:41 98.2 71 18 107/62 93 02/13/17 22:00 Nasal Cannula 2.0 02/12/17 08:29 100 Intake and Output 02/13/17 02/13/17 02/14/17 15:00 23:00 07:00 Intake Total 100 ml 550 ml 450 ml Output Total 600 ml 400 ml Balance 100 ml -50 ml 50 ml Exam Review of Systems: CONSTITUTIONAL: No fevers, chills. PULMONARY: No sob CARDIOVASCULAR: No chest pain/palpitations GASTROINTESTINAL: No nausea/vomiting. GENITOURINARY: No hematuria/dysuria. MUSCULOSKELETAL: No myagias/arthalgias. PSYCHIATRIC: The patient denies depression. NEUROLOGIC: lethargic Constitutional: alert Psych: no complaints Head: normocephalic ENMT: mucosa pink and moist Neck: jvd (9 cm water), supple Respiratory: diminished breath sounds (at bases/B) Cardiovascular: regular rate and rhythm Gastrointestinal: non-tender, soft Musculoskeletal: muscle tone (normal) Extremities: edema (none) 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: lethargic Results Result Diagram: 02/14/17 0530 02/14/17 0530 Results 24 hrs Laboratory Tests Test 02/14/17 05:30 White Blood Count 10.6 # Red Blood Count 3.43 L Hemoglobin 10.7 L Hematocrit 31.8 L Mean Corpuscular Volume 92.7 Mean Corpuscular Hemoglobin 31.2 Mean Corpuscular Hemoglobin Concent 33.6 Red Cell Distribution Width 13.2 Platelet Count 120 L Mean Platelet Volume 10.6 H Neutrophils % 81.1 H Lymphocytes % 11.3 L Monocytes % 5.5 Eosinophils % 1.3 Basophils % 0.2 Nucleated Red Blood Cells % 0.0 Neutrophils # 8.6 H Lymphocytes # 1.2 Monocytes # 0.6 Eosinophils # 0.1 Basophils # 0.0 Nucleated Red Blood Cells # 0.0 Sodium Level 141 Potassium Level 3.7 Chloride Level 102 Carbon Dioxide Level 28 Anion Gap 15 Blood Urea Nitrogen 28 H Creatinine 0.64 Glucose Level 88 Calcium Level 8.7 Medications Medications Current Medications Acetaminophen (Tylenol Tab) 650 mg Q4 PRN PO ELEVATED TEMPERATURE; Start at 15:30 Acetaminophen (Tylenol Tab) 650 mg Q4 PRN PO MILD PAIN LEVEL 1-3 Last administered on 02/13/17 17:37; Admin Dose 650 MG; Start 02/09/17 at 15:30 Atorvastatin Calcium (Lipitor) 80 mg QHS PO Last administered on 02/13/17 21: 03; Admin Dose 80 MG; Start 02/09/17 at 21:00 Docusate Sodium (Colace) 100 mg BID PRN PO CONSTIPATION; Start 02/09/17 at 15: 30 Multivitamins Therapeutic (Theragran) 1 tab DAILY PO Last administered on 09:38; Admin Dose 1 TAB; Start 02/10/17 at 09:00 Lisinopril 2.5 mg 2.5 mg DAILY PO Last administered on 02/14/17 09:39; Admin Dose 2.5 MG; Start 02/11/17 at 09:00 Meropenem (Merrem 500 Mg/ 100 ml (Pmx)) 100 ml @ 200 mls/hr Q12 IVPB Last administered on 02/14/17 09:38; Admin Dose 200 MLS/HR; Start 02/11/17 at 12:00 Carvedilol (Coreg) 1.5625 mg BID PO Last administered on 02/14/17 09:39; Admin Dose 1.5625 MG; Start 02/11/17 at 21:00 Tamsulosin HCl 0.4 mg 0.4 mg HS PO Last administered on 02/13/17 21:03; Admin Dose 0.4 MG; Start 02/12/17 at 21:00 Vancomycin HCl/ Sodium Chloride (Vancocin/NS) 150 ml @ 75 mls/hr Q12H IVPB Last administered on 02/14/17 12:07; Admin Dose 75 MLS/HR; Start 02/14/17 at 01 :00 Miscellaneous Information (*Rx Drug Level Order Reminder*) VANCOMYCIN TROUGH AT 0000 ONCE ONCE XX ; Start 02/15/17 at 00:00; Stop 02/15/17 at 00:01 KRISTA SOMMER February 14, 2017 18:08
--- NOTE | 2017-02-14 18:28 | PN ---
Date/Time of Note Date/Time of Note DATE: 02/14/17 TIME: 18:24 Assessment/Plan VTE Prophylaxis VTE Prophylaxis Intervention: SCD's Lines/Catheters IV [facility] [facility] Urinary Cath still in place: Yes Reason Cath still needed: urinary retention Assessment/Plan Chief Complaint/Hosp Course - E. coli E. coli ESBL urinary tract infection, continue meropenem, Dr. Bond will be following in ID consultation - Healthcare associated pneumonia versus aspiration, continue broad-spectrum antibiotics, chest x-ray tomorrow. - Hematuria secondary to urinary tract infection, resolving. Dr. Muhammad is following in urology consultation. - Coronary artery disease status post non-ST elevation myocardial infarction with ischemic cardiomyopathy. Continue Coreg. 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 Dr. Guan is following in cardiology consultation. - Hypertension. Continue lisinopril. - Dyslipidemia. Continue statin. Further recommendations based on clinical course. Plan of care discussed with Dr. Sanders. Problems: Subjective 24 Hr Interval Summary Free Text/Dictation Patient remains afebrile, denies any chest pain. Exam/Review of Systems Vital Signs Vitals Vital Signs Date Time Temp Pulse Resp B/P Pulse Ox O2 Delivery O2 Flow Rate FiO2 02/14/17 07:41 98.2 71 18 107/62 93 02/13/17 22:00 Nasal Cannula 2.0 02/12/17 08:29 100 Intake and Output 02/13/17 02/13/17 02/14/17 15:00 23:00 07:00 Intake Total 100 ml 550 ml 450 ml Output Total 600 ml 400 ml Balance 100 ml -50 ml 50 ml Exam Constitutional: alert, oriented Psych: no complaints Head: atraumatic, normocephalic ENMT: nl external ears & nose, other (Hard of hearing) Neck: non-tender, supple Respiratory: clear to auscultation Cardiovascular: regular rate and rhythm Gastrointestinal: non-tender, soft Genitourinary - Male: other (Maradiaga catheter ) Musculoskeletal: nl extremities to inspection Extremities: normal pulses 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: GLASS PRESSER II-XII intact Results Result Diagram: 02/14/17 0530 02/14/17 0530 Results 24 hrs Laboratory Tests Test 02/14/17 05:30 White Blood Count 10.6 # Red Blood Count 3.43 L Hemoglobin 10.7 L Hematocrit 31.8 L Mean Corpuscular Volume 92.7 Mean Corpuscular Hemoglobin 31.2 Mean Corpuscular Hemoglobin Concent 33.6 Red Cell Distribution Width 13.2 Platelet Count 120 L Mean Platelet Volume 10.6 H Neutrophils % 81.1 H Lymphocytes % 11.3 L Monocytes % 5.5 Eosinophils % 1.3 Basophils % 0.2 Nucleated Red Blood Cells % 0.0 Neutrophils # 8.6 H Lymphocytes # 1.2 Monocytes # 0.6 Eosinophils # 0.1 Basophils # 0.0 Nucleated Red Blood Cells # 0.0 Sodium Level 141 Potassium Level 3.7 Chloride Level 102 Carbon Dioxide Level 28 Anion Gap 15 Blood Urea Nitrogen 28 H Creatinine 0.64 Glucose Level 88 Calcium Level 8.7 Medications Medications Current Medications Acetaminophen (Tylenol Tab) 650 mg Q4 PRN PO ELEVATED TEMPERATURE; Start at 15:30 Acetaminophen (Tylenol Tab) 650 mg Q4 PRN PO MILD PAIN LEVEL 1-3 Last administered on 02/13/17 17:37; Admin Dose 650 MG; Start 02/09/17 at 15:30 Atorvastatin Calcium (Lipitor) 80 mg QHS PO Last administered on 02/13/17 21: 03; Admin Dose 80 MG; Start 02/09/17 at 21:00 Docusate Sodium (Colace) 100 mg BID PRN PO CONSTIPATION; Start 02/09/17 at 15: 30 Multivitamins Therapeutic (Theragran) 1 tab DAILY PO Last administered on 09:38; Admin Dose 1 TAB; Start 02/10/17 at 09:00 Lisinopril 2.5 mg 2.5 mg DAILY PO Last administered on 02/14/17 09:39; Admin Dose 2.5 MG; Start 02/11/17 at 09:00 Meropenem (Merrem 500 Mg/ 100 ml (Pmx)) 100 ml @ 200 mls/hr Q12 IVPB Last administered on 02/14/17 09:38; Admin Dose 200 MLS/HR; Start 02/11/17 at 12:00 Carvedilol (Coreg) 1.5625 mg BID PO Last administered on 02/14/17 09:39; Admin Dose 1.5625 MG; Start 02/11/17 at 21:00 Tamsulosin HCl 0.4 mg 0.4 mg HS PO Last administered on 02/13/17 21:03; Admin Dose 0.4 MG; Start 02/12/17 at 21:00 Vancomycin HCl/ Sodium Chloride (Vancocin/NS) 150 ml @ 75 mls/hr Q12H IVPB Last administered on 02/14/17 12:07; Admin Dose 75 MLS/HR; Start 02/14/17 at 01 :00 Miscellaneous Information (*Rx Drug Level Order Reminder*) VANCOMYCIN TROUGH AT 0000 ONCE ONCE XX ; Start 02/15/17 at 00:00; Stop 02/15/17 at 00:01 CAROLINA FARR February 14, 2017 18:28
[2017-02-14 19:16] VITALS: BP 104/64; RESP 20
[2017-02-14] MEDS: ATORVASTATIN 80 MG TAB PO SCH (21:27)
[2017-02-14] MEDS: TAMSULOSIN (SR) 0.4 MG CAP PO SCH (21:27)
[2017-02-15] MEDS: VANCOMYCIN 1 GM in NS 250 ML IVPB SCH ×2 (02:16→13:50)
[2017-02-15 07:42] VITALS: BP 113/61; RESP 16
--- NOTE | 2017-02-15 09:07 | CONS ---
Date/Time of Note Date/Time of Note DATE: 02/15/17 TIME: 09:05 Assessment/Plan Assessment/Plan Additional Assessment/Plan 1. Hypotension, intermittent borderline, question relationship to ischemic cardiomyopathy - BP stable, off tele now 2. Ischemic cardiomyopathy, decreased left ventricular ejection fraction approximately 35% to 40% by echo during this hospitalization- very debilitated, not a good ICD candidate now 3. Hematuria-followed by nephrology 4. Anemia- H/H stable, will adjust Rax s needed 5. Urinary tract infection - on anti-Bx now 6. Dyslipidemia. 7. History of coronary artery disease, status post prior non-ST elevation myocardial infarction- no active ischemia now 8. PNA Consultation Date/Type/Reason Admit Date/Time February 10, 2017 at 10:43 Initial Consult Date Type of Consultation: Cardiology Referring Provider: JOHN ALANIS MD 24 HR Interval Summary Free Text/Dictation NO acute events - BP stable - in good fluid status - will adjust Rx now. ROS: No fever, no chills, no nausea, no vomiting, no diarrhea/constipation No recent weight changes No chest pain, no PND, no orthopnea No dizziness, blurred vision No thirst, no heat or cold intolerance (per nurse) Exam/Review of Systems Vital Signs Vitals Vital Signs Date Time Temp Pulse Resp B/P Pulse Ox O2 Delivery O2 Flow Rate FiO2 02/15/17 07:42 98.0 78 16 113/61 94 02/14/17 20:35 21 02/13/17 22:00 Nasal Cannula 2.0 Intake and Output 02/14/17 02/14/17 02/15/17 15:00 23:00 07:00 Intake Total 100 ml 1190 ml 490 ml Output Total 500 ml 600 ml Balance 100 ml 690 ml -110 ml Exam General: WN/WD/NAD, AOx confused HEENT: Unicetric/atraumatic/EOMI (does not follow commands) NECK: JVD elevated, no thyromegaly Lymph: no lymphadenopathy HEART: regular with no S3, II/ systolic murmur at apex LUNGS: Coarse sounds ABD: soft, NT, ND, +BS : Intact Neuro: non focal SKIN: chronic changes EXT: trace edema Results Result Diagram: 02/14/1752902/14/1730 Results 24 hrs Laboratory Tests Test 02/15/17 00:35 Vancomycin Level Trough 9.5 L Medications Medications Current Medications Acetaminophen (Tylenol Tab) 650 mg Q4 PRN PO ELEVATED TEMPERATURE; Start at 15:30 Acetaminophen (Tylenol Tab) 650 mg Q4 PRN PO MILD PAIN LEVEL 1-3 Last administered on 02/13/17 17:37; Admin Dose 650 MG; Start 02/09/17 at 15:30 Atorvastatin Calcium (Lipitor) 80 mg QHS PO Last administered on 02/14/17 21: 27; Admin Dose 80 MG; Start 02/09/17 at 21:00 Docusate Sodium (Colace) 100 mg BID PRN PO CONSTIPATION; Start 02/09/17 at 15: 30 Multivitamins Therapeutic (Theragran) 1 tab DAILY PO Last administered on 09:38; Admin Dose 1 TAB; Start 02/10/17 at 09:00 Lisinopril 2.5 mg 2.5 mg DAILY PO Last administered on 02/14/17 09:39; Admin Dose 2.5 MG; Start 02/11/17 at 09:00 Meropenem (Merrem 500 Mg/ 100 ml (Pmx)) 100 ml @ 200 mls/hr Q12 IVPB Last administered on 02/14/17 21:26; Admin Dose 200 MLS/HR; Start 02/11/17 at 12:00 Carvedilol (Coreg) 1.5625 mg BID PO Last administered on 02/14/17 21:27; Admin Dose 1.5625 MG; Start 02/11/17 at 21:00 Tamsulosin HCl 0.4 mg 0.4 mg HS PO Last administered on 02/14/17 21:27; Admin Dose 0.4 MG; Start 02/12/17 at 21:00 Vancomycin HCl (Vancocin) 250 ml @ 125 mls/hr Q12H IVPB Last administered on 02:16; Admin Dose 125 MLS/HR; Start 02/15/17 at 02:00 SADIQ SINGH MD February 15, 2017 09:07
[2017-02-15] MEDS: MULTIVITAMINS THERAPEUTIC TAB PO SCH (09:08)
[2017-02-15] MEDS: LISINOPRIL 5 MG TAB PO SCH (09:08)
[2017-02-15] MEDS: MEROPENEM 500 MG/100 ML (PMX) 100 ML IVPB SCH ×2 (09:08→20:33)
--- NOTE | 2017-02-15 09:17 | PN ---
DATE: 02/15/2017 SUBJECTIVE: The patient has had gross hematuria and the urine has since cleared. The patient appear ed to be comfortable. OBJECTIVE VITAL SIGNS: His temperature is 98.0, blood pressure 104/64, pulse is 73, respiration is 20. GENITOURINARY: The external genitalia are normal. He does have an indwelling Maradiaga catheter that is draining clear urine. Urine cytology that was sent on February 11 is negative for malignant cells. LABORATORY DATA: CBC shows a white count of 10.6, hemoglobin 10.7, hematocrit 31.8. BUN is 28, cre atinine 0.64. Electrolytes are normal. The urine culture is showing E. coli ESBL. The patient is on meropenem. He is also on tamsulosin and one could discontinue his Maradiaga catheter and see if he i s able to urinate and use a condom catheter or diapers on him. Dictated By: RONNIE SIBLEY/ARCHIE Conf#: [id number] DID#: [id number]
--- NOTE | 2017-02-15 10:31 | RADRPT ---
PROCEDURE: Chest x-ray CLINICAL INDICATION: Pneumonia TECHNIQUE: Chest single view COMPARISON: 02/12/2017 FINDINGS: The heart is normal in size. The pulmonary vessels are normal in caliber. There is interval improv ement of right lower lobe pneumonia. No new infiltrates are seen. Costophrenic angles are sharp. Bony thorax is unremarkable IMPRESSION: 1. Continued improvement of right lower lobe pneumonia. 2. No new infiltrates RPTAT: HH .Edgardo Mendoza MD, MD Date Time Electronically viewed and signed by .Edgardo Mendoza MD, on 02/15/2017 10:31 .W/
--- NOTE | 2017-02-15 12:35 | CONS ---
Date/Time of Note Date/Time of Note DATE: 02/15/17 TIME: 12:34 Assessment/Plan Assessment/Plan Chief Complaint/Hosp Course SUBJECTIVE: No acute events per report, looks comfortable, no fevers. DIAGNOSTICS: Chest x-ray from 02/12 revealed patchy infiltrate in the right lower zone. MICROBIOLOGY: Urine culture on admission grew E. coli ESBL. ANTIMICROBIALS: Vancomycin Merrem. INDWELLINGS: Maradiaga catheter. PHYSICAL EXAMINATION: GENERAL: Fragile chronically ill-appearing elderly man who is awake, in no distress. HEENT: Head atraumatic, normocephalic. Sclerae anicteric. Buccal mucosa dry. NECK: Supple, trachea midline. CHEST: Rise symmetrical. Breath sounds with scattered rhonchi. HEART: S1, S2. ABDOMEN: Soft, bowel tones present. EXTREMITIES: No cyanosis. ASSESSMENT: 1. Sepsis. 2. Healthcare-associated pneumonia, possibly ongoing aspiration. 3. Escherichia coli extended-spectrum beta-lactamase urinary tract infection. 4. Dementia. 5. Dysphagia. PLAN: Remains stable. Continue on current antimicrobials. Continue anti- aspiration measures. DW staff/pt Problems: Consultation Date/Type/Reason Admit Date/Time February 10, 2017 at 10:43 Type of Consultation: ID Referring Provider: JOHN ALANIS MD Exam/Review of Systems Vital Signs Vitals Vital Signs Date Time Temp Pulse Resp B/P Pulse Ox O2 Delivery O2 Flow Rate FiO2 02/15/17 07:42 98.0 78 16 113/61 94 02/14/17 20:35 21 02/13/17 22:00 Nasal Cannula 2.0 Intake and Output 02/14/17 02/14/17 02/15/17 14:59 22:59 06:59 Intake Total 100 ml 1190 ml 490 ml Output Total 500 ml 600 ml Balance 100 ml 690 ml -110 ml Results Result Diagram: 02/14/17 0530 02/14/17 0530 Results 24 hrs Laboratory Tests Test 02/15/17 00:35 Vancomycin Level Trough 9.5 L Medications Medications Current Medications Acetaminophen (Tylenol Tab) 650 mg Q4 PRN PO ELEVATED TEMPERATURE; Start at 15:30 Acetaminophen (Tylenol Tab) 650 mg Q4 PRN PO MILD PAIN LEVEL 1-3 Last administered on 02/13/17t 17:37; Admin Dose 650 MG; Start 02/09/17 at 15:30 Atorvastatin Calcium (Lipitor) 80 mg QHS PO Last administered on 02/14/17 21: 27; Admin Dose 80 MG; Start 02/09/17 at 21:00 Docusate Sodium (Colace) 100 mg BID PRN PO CONSTIPATION; Start 02/09/17 at 15: 30 Multivitamins Therapeutic (Theragran) 1 tab DAILY PO Last administered on 09:08; Admin Dose 1 TAB; Start 02/10/17 at 09:00 Lisinopril 2.5 mg 2.5 mg DAILY PO Last administered on 02/15/17 09:08; Admin Dose 2.5 MG; Start 02/11/17 at 09:00 Meropenem (Merrem 500 Mg/ 100 ml (Pmx)) 100 ml @ 200 mls/hr Q12 IVPB Last administered on 02/15/17 09:08; Admin Dose 200 MLS/HR; Start 02/11/17 at 12:00 Carvedilol (Coreg) 1.5625 mg BID PO Last administered on 02/15/17 09:09; Admin Dose 1.5625 MG; Start 02/11/17 at 21:00 Tamsulosin HCl 0.4 mg 0.4 mg HS PO Last administered on 02/14/17 21:27; Admin Dose 0.4 MG; Start 02/12/17 at 21:00 Vancomycin HCl (Vancocin) 250 ml @ 125 mls/hr Q12H IVPB Last administered on 02:16; Admin Dose 125 MLS/HR; Start 02/15/17 at 02:00 JAQUELIN SAMAYOA NP February 15, 2017 12:35
--- NOTE | 2017-02-15 17:17 | PN ---
Date/Time of Note Date/Time of Note DATE: 02/15/17 TIME: 17:15 Assessment/Plan VTE Prophylaxis VTE Prophylaxis Intervention: SCD's Lines/Catheters IV Catheter Type (from [facility]): Saline Lock Urinary Cath still in place: Yes Reason Cath still needed: urinary retention Assessment/Plan Chief Complaint/Hosp Course - E. coli E. coli ESBL urinary tract infection, continue meropenem, Dr. Bond is following in ID consultation. - Healthcare associated pneumonia versus aspiration, continue broad-spectrum antibiotics. Pending's video swallow evaluation. - Hematuria secondary to urinary tract infection, resolving. Dr. Muhammad is following in urology consultation. - Coronary artery disease status post non-ST elevation myocardial infarction with ischemic cardiomyopathy. Continue Coreg. 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 Dr. Guan is following in cardiology consultation. - Hypertension. Continue lisinopril. - Dyslipidemia. Continue statin. Further recommendations based on clinical course. Plan of care discussed with Dr. Sanders. Problems: Subjective 24 Hr Interval Summary Free Text/Dictation Patient is awake alert, pending video swallow evaluation to rule out possible aspiration. Exam/Review of Systems Vital Signs Vitals Vital Signs Date Time Temp Pulse Resp B/P Pulse Ox O2 Delivery O2 Flow Rate FiO2 02/15/17 07:42 98.0 78 16 113/61 94 02/14/17 20:35 21 02/13/17 22:00 Nasal Cannula 2.0 Intake and Output 02/14/17 02/14/17 02/15/17 15:00 23:00 07:00 Intake Total 100 ml 1190 ml 490 ml Output Total 500 ml 600 ml Balance 100 ml 690 ml -110 ml Exam Constitutional: alert, oriented Psych: no complaints Head: atraumatic, normocephalic ENMT: nl external ears & nose, other (Hard of hearing) Neck: non-tender, supple Respiratory: clear to auscultation Cardiovascular: regular rate and rhythm Gastrointestinal: non-tender, soft Genitourinary - Male: other (Maradiaga catheter ) Musculoskeletal: nl extremities to inspection Extremities: normal pulses 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 Results Result Diagram: 02/14/17 0530 02/14/17 0530 Results 24 hrs Laboratory Tests Test 02/15/17 00:35 Vancomycin Level Trough 9.5 L Medications Medications Current Medications Acetaminophen (Tylenol Tab) 650 mg Q4 PRN PO ELEVATED TEMPERATURE; Start at 15:30 Acetaminophen (Tylenol Tab) 650 mg Q4 PRN PO MILD PAIN LEVEL 1-3 Last administered on 02/13/17 17:37; Admin Dose 650 MG; Start 02/09/17 at 15:30 Atorvastatin Calcium (Lipitor) 80 mg QHS PO Last administered on 02/14/17 21: 27; Admin Dose 80 MG; Start 02/09/17 at 21:00 Docusate Sodium (Colace) 100 mg BID PRN PO CONSTIPATION; Start 02/09/17 at 15: 30 Multivitamins Therapeutic (Theragran) 1 tab DAILY PO Last administered on 09:08; Admin Dose 1 TAB; Start 02/10/17 at 09:00 Lisinopril 2.5 mg 2.5 mg DAILY PO Last administered on 02/15/17 09:08; Admin Dose 2.5 MG; Start 02/11/17 at 09:00 Meropenem (Merrem 500 Mg/ 100 ml (Pmx)) 100 ml @ 200 mls/hr Q12 IVPB Last administered on 02/15/17 09:08; Admin Dose 200 MLS/HR; Start 02/11/17 at 12:00 Carvedilol (Coreg) 1.5625 mg BID PO Last administered on 02/15/17 09:09; Admin Dose 1.5625 MG; Start 02/11/17 at 21:00 Tamsulosin HCl 0.4 mg 0.4 mg HS PO Last administered on 02/14/17 21:27; Admin Dose 0.4 MG; Start 02/12/17 at 21:00 Vancomycin HCl (Vancocin) 250 ml @ 125 mls/hr Q12H IVPB Last administered on 13:50; Admin Dose 125 MLS/HR; Start 02/15/17 at 02:00 CAROLINA FARR February 15, 2017 17:17
[2017-02-15 19:36] VITALS: BP 98/55; RESP 18
[2017-02-15 20:30] VITALS: BP 96/53; PULSE 69
[2017-02-15] MEDS: ATORVASTATIN 80 MG TAB PO SCH (20:35)
[2017-02-15] MEDS: TAMSULOSIN (SR) 0.4 MG CAP PO SCH (20:35)
[2017-02-16] MEDS: VANCOMYCIN 1 GM in NS 250 ML IVPB SCH ×2 (01:30→15:07)
[2017-02-16 06:17] LABS: ADD SCAN DIFF NO
[2017-02-16 06:28] LABS: BASOPHILS % 0.1 % (0.0-2.0); EOSINOPHILS # 0.3 10^3/ul (0.0-0.5); EOSINOPHILS % 3.8 % (0.0-7.0); HEMATOCRIT 32.3 % (42.0-52.0); HEMOGLOBIN 10.9 g/dl (14.0-18.0); LYMPHOCYTES # 1.3 10^3/ul (0.8-2.9); LYMPHOCYTES % 17.2 % (15.0-51.0); MEAN CORPUSCULAR HEMOGLOBIN 30.9 pg (29.0-33.0); MEAN CORPUSCULAR HGB CONC 33.7 g/dl (32.0-37.0); MEAN CORPUSCULAR VOLUME 91.5 fl (82.0-101.0); MEAN PLATELET VOLUME 10.4 fl (7.4-10.4); MONOCYTE # 0.7 10^3/ul (0.3-0.9); MONOCYTES % 8.8 % (0.0-11.0); NEUTROPHIL # 5.1 10^3/ul (1.6-7.5); NEUTROPHILS % 69.7 % (39.0-77.0); PLATELET COUNT 145 10^3/UL (140-415); RED BLOOD COUNT 3.53 10^6/ul (4.70-6.10); RED CELL DISTRIBUTION WIDTH 13.1 % (11.5-14.5); WHITE BLOOD COUNT 7.4 10^3/ul (4.8-10.8)
[2017-02-16 06:48] LABS: CREATININE 0.57 mg/dl (0.61-1.24); POTASSIUM 3.9 mmol/L (3.5-5.1)
[2017-02-16 08:04] VITALS: BP 103/60; RESP 16
[2017-02-16] MEDS: LISINOPRIL 5 MG TAB PO SCH (09:00)
[2017-02-16] MEDS: MULTIVITAMINS THERAPEUTIC TAB PO SCH (09:13)
[2017-02-16] MEDS: MEROPENEM 500 MG/100 ML (PMX) 100 ML IVPB SCH ×2 (09:13→20:58)
--- NOTE | 2017-02-16 14:03 | PN ---
DATE: 02/16/2017 SUBJECTIVE: Urinary tract infection and urinary retention. The patient denies having any burning o r stinging on urination. The Maradiaga catheter that he had was removed this morning, and the patient h as voided since. OBJECTIVE: VITAL SIGNS: Temperature is 97.9, blood pressure 103/60, pulse is 70, respirations 16. ABDOMEN: Soft. The bladder is not distended. LABORATORY DATA: CBC shows a white count of 7.4, hemoglobin 10.9, hematocrit 32.3. BUN is 16, crea tinine 0.57, sodium 139, potassium 3.9, chloride 105, CO2 of 27. The patient did void earlier and his postvoid residual was about 93 mL. PLAN: To continue to monitor his voiding and his postvoid residual using the bladder scan. Dictated By: RONNIE SIBLEY/ARCHIE Conf#: [id number] DID#: [id number]
--- NOTE | 2017-02-16 14:27 | PN ---
DATE: 02/16/2017 INFECTIOUS DISEASE PROGRESS NOTE SUBJECTIVE: No acute changes. The patient is awake, looks comfortable. No fevers. VITAL SIGNS: Stable. LABORATORY DATA: WBC 7.4. No shift, no bands. BUN 16, creatinine 0.57. ANTIMICROBIALS: 1. Vancomycin. 2. Meropenem. PHYSICAL EXAMINATION: GENERAL: This is a fragile, chronically ill-appearing, elderly man who is awake, in no distress. HEENT: Atraumatic, normocephalic. Sclerae are anicteric. Buccal mucosa dry. NECK: Supple. Trachea midline. CHEST: Symmetrical. Breath sounds diminished bases. HEART: S1, S2. ABDOMEN: Soft, bowel sounds present. 1. Resolving sepsis. 2. Right lower lobe pneumonia with radiographic improvement. 3. Escherichia coli extended-spectrum beta-lactamase urinary tract infection. 4. Dysphagia. 5. Dementia. PLAN: The patient remains stable, overall improving. Continue present care, antibiotics, anti-aspi ration measures. Dictated By: JAQUELIN SAMAYOA SLAB TRIPPER for SABRINA TORRES/ARCHIE Conf#: [id number] DID#: [id number]
--- NOTE | 2017-02-16 16:18 | CONS ---
Date/Time of Note Date/Time of Note DATE: 02/16/17 TIME: 16:13 Assessment/Plan Assessment/Plan Chief Complaint/Hosp Course IMPRESSION 1. Hypotension, intermittent borderline, question relationship to ischemic cardiomyopathy. 2. Ischemic cardiomyopathy, decreased left ventricular ejection fraction approximately 35% to 40% by echo during this hospitalization. 3. Hematuria-followed by neurologfy 4. Anemia. 5. Urinary tract infection. 6. Dyslipidemia. 7. History of coronary artery disease, status post prior non-ST elevation myocardial infarction. 8. PNA REcc: -Continue current low dose coreg/ACEI and follow BP closely as tolerated only -Follow volume status closely -Continue statin -Continue abx's and f/u cx data -Follow MS closely Problems: Consultation Date/Type/Reason Admit Date/Time February 10, 2017 at 10:43 Initial Consult Date 02/10/2017 Type of Consultation: Cardiology Reason for Consultation cardiomyopathy Referring Provider: JOHN ALANIS MD Exam/Review of Systems Vital Signs Vitals Vital Signs Date Time Temp Pulse Resp B/P Pulse Ox O2 Delivery O2 Flow Rate FiO2 02/16/17 08:04 97.9 70 16 103/60 97 02/14/17 20:35 21 02/13/17 22:00 Nasal Cannula 2.0 Intake and Output 02/15/17 02/15/17 02/16/17 15:00 23:00 07:00 Intake Total 100 ml 1430 ml 1050 ml Output Total 250 ml 500 ml Balance 100 ml 1180 ml 550 ml Exam Review of Systems: CONSTITUTIONAL: No fevers, chills. PULMONARY: No sob CARDIOVASCULAR: No chest pain/palpitations GASTROINTESTINAL: No nausea/vomiting. GENITOURINARY: No hematuria/dysuria. MUSCULOSKELETAL: No myagias/arthalgias. PSYCHIATRIC: The patient denies depression. NEUROLOGIC: No weakness Constitutional: alert Psych: no complaints Head: normocephalic ENMT: mucosa pink and moist Neck: supple Respiratory: clear to auscultation, diminished breath sounds (at bases/B) Cardiovascular: regular rate and rhythm Gastrointestinal: non-tender, soft Musculoskeletal: muscle tone (normal) Extremities: edema (none) 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: other (No focal deficits) Results Result Diagram: 02/16/17 0548 02/16/17 0548 Results 24 hrs Laboratory Tests Test 02/16/17 05:48 White Blood Count 7.4 # Red Blood Count 3.53 L Hemoglobin 10.9 L Hematocrit 32.3 L Mean Corpuscular Volume 91.5 Mean Corpuscular Hemoglobin 30.9 Mean Corpuscular Hemoglobin Concent 33.7 Red Cell Distribution Width 13.1 Platelet Count 145 # Mean Platelet Volume 10.4 Neutrophils % 69.7 Lymphocytes % 17.2 Monocytes % 8.8 Eosinophils % 3.8 Basophils % 0.1 Nucleated Red Blood Cells % 0.0 Neutrophils # 5.1 Lymphocytes # 1.3 Monocytes # 0.7 Eosinophils # 0.3 Basophils # 0.0 Nucleated Red Blood Cells # 0.0 Sodium Level 139 Potassium Level 3.9 Chloride Level 105 Carbon Dioxide Level 27 Anion Gap 11 Blood Urea Nitrogen 16 Creatinine 0.57 L Glucose Level 103 Calcium Level 9.0 Medications Medications Current Medications Acetaminophen (Tylenol Tab) 650 mg Q4 PRN PO ELEVATED TEMPERATURE; Start at 15:30 Acetaminophen (Tylenol Tab) 650 mg Q4 PRN PO MILD PAIN LEVEL 1-3 Last administered on 02/13/17 17:37; Admin Dose 650 MG; Start 02/09/17 at 15:30 Atorvastatin Calcium (Lipitor) 80 mg QHS PO Last administered on 02/15/17 20: 35; Admin Dose 80 MG; Start 02/09/17 at 21:00 Docusate Sodium (Colace) 100 mg BID PRN PO CONSTIPATION Last administered on 05:26; Admin Dose 100 MG; Start 02/09/17 at 15:30 Multivitamins Therapeutic (Theragran) 1 tab DAILY PO Last administered on 09:13; Admin Dose 1 TAB; Start 02/10/17 at 09:00 Lisinopril 2.5 mg 2.5 mg DAILY PO Last administered on 02/15/17 09:08; Admin Dose 2.5 MG; Start 02/11/17 at 09:00 Meropenem (Merrem 500 Mg/ 100 ml (Pmx)) 100 ml @ 200 mls/hr Q12 IVPB Last administered on 02/16/17 09:13; Admin Dose 200 MLS/HR; Start 02/11/17 at 12:00 Carvedilol (Coreg) 1.5625 mg BID PO Last administered on 02/15/17 09:09; Admin Dose 1.5625 MG; Start 02/11/17 at 21:00 Tamsulosin HCl 0.4 mg 0.4 mg HS PO Last administered on 02/15/17 20:35; Admin Dose 0.4 MG; Start 02/12/17 at 21:00 Vancomycin HCl (Vancocin) 250 ml @ 125 mls/hr Q12H IVPB Last administered on 15:07; Admin Dose 125 MLS/HR; Start 02/15/17 at 02:00 Miscellaneous Information (*Rx Drug Level Order Reminder*) VANCOMYCIN TROUGH AT 0100 ONCE ONCE XX ; Start 02/17/17 at 01:00; Stop 02/17/17 at 01:01 KRISTA SOMMER February 16, 2017 16:18
--- NOTE | 2017-02-16 17:24 | RADRPT ---
PROCEDURE: Video-fluoroscopy swallowing study. CLINICAL INDICATION: Dysphagia. TECHNIQUE: Fluoroscopic guided video swallowing study was done in conjunction with the speech ther apist. The study was confined to the oral, pharyngeal, and cervical phases of the swallowing mechani sm. 4.3 minutes of fluoroscopy time was used. COMPARISON: No prior study is available for comparison. FINDINGS: There is silent aspiration during swallowing thin liquids by spoon. There is penetration with all t rials. IMPRESSION: 1. Silent aspiration during swallowing thin liquids. 2. Please refer to the speech therapist's recommendations for future feedings. RPTAT: QQ .Luis A Carrillo MD, MD Date Time Electronically viewed and signed by .Luis A Carrillo MD, MD on 02/16/2017 17:24 .R/
--- NOTE | 2017-02-16 17:30 | PN ---
Date/Time of Note Date/Time of Note DATE: 02/16/17 TIME: 17:28 Assessment/Plan VTE Prophylaxis VTE Prophylaxis Intervention: SCD's Lines/Catheters IV [facility] Type [facility]from [facility] Saline Lock Urinary Cath still in place: No Assessment/Plan Chief Complaint/Hosp Course - E. coli E. coli ESBL urinary tract infection, continue meropenem, Dr. Bond is following in ID consultation. - Healthcare associated pneumonia versus aspiration, continue broad-spectrum antibiotics. Pending's video swallow evaluation. - Hematuria secondary to urinary tract infection, resolving. Dr. Muhammad is following in urology consultation. - Coronary artery disease status post non-ST elevation myocardial infarction with ischemic cardiomyopathy. Continue Coreg. 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 Dr. Guan is following in cardiology consultation. - Hypertension. Continue lisinopril. - Dyslipidemia. Continue statin. Anticipate discharge [facility] upon completion of meropenem for a E. coli ESBL possibly Tuesday, discussed with case management. Further recommendations based on clinical course. Plan of care discussed with Dr. Sanders. Problems: Subjective 24 Hr Interval Summary Free Text/Dictation Patient's Maradiaga removed, continue to monitor postvoid residual, this post video swallow evaluation pending results, remains afebrile. Exam/Review of Systems Vital Signs Vitals Vital Signs Date Time Temp Pulse Resp B/P Pulse Ox O2 Delivery O2 Flow Rate FiO2 02/16/17 08:04 97.9 70 16 103/60 97 02/14/17 20:35 21 02/13/17 22:00 Nasal Cannula 2.0 Intake and Output 02/15/17 02/15/17 02/16/17 15:00 23:00 07:00 Intake Total 100 ml 1430 ml 1050 ml Output Total 250 ml 500 ml Balance 100 ml 1180 ml 550 ml Exam Constitutional: alert, oriented Psych: no complaints Head: atraumatic, normocephalic ENMT: nl external ears & nose, other (Hard of hearing) Neck: non-tender, supple Respiratory: clear to auscultation Cardiovascular: regular rate and rhythm Gastrointestinal: non-tender, soft Genitourinary - Male: other (Maradiaga catheter ) Musculoskeletal: nl extremities to inspection Extremities: normal pulses 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 Results Result Diagram: 02/16/17 0548 02/16/17 0548 Results 24 hrs Laboratory Tests Test 02/16/17 05:48 White Blood Count 7.4 # Red Blood Count 3.53 L Hemoglobin 10.9 L Hematocrit 32.3 L Mean Corpuscular Volume 91.5 Mean Corpuscular Hemoglobin 30.9 Mean Corpuscular Hemoglobin Concent 33.7 Red Cell Distribution Width 13.1 Platelet Count 145 # Mean Platelet Volume 10.4 Neutrophils % 69.7 Lymphocytes % 17.2 Monocytes % 8.8 Eosinophils % 3.8 Basophils % 0.1 Nucleated Red Blood Cells % 0.0 Neutrophils # 5.1 Lymphocytes # 1.3 Monocytes # 0.7 Eosinophils # 0.3 Basophils # 0.0 Nucleated Red Blood Cells # 0.0 Sodium Level 139 Potassium Level 3.9 Chloride Level 105 Carbon Dioxide Level 27 Anion Gap 11 Blood Urea Nitrogen 16 Creatinine 0.57 L Glucose Level 103 Calcium Level 9.0 Medications Medications Current Medications Acetaminophen (Tylenol Tab) 650 mg Q4 PRN PO ELEVATED TEMPERATURE; Start at 15:30 Acetaminophen (Tylenol Tab) 650 mg Q4 PRN PO MILD PAIN LEVEL 1-3 Last administered on 02/13/17 17:37; Admin Dose 650 MG; Start 02/09/17 at 15:30 Atorvastatin Calcium (Lipitor) 80 mg QHS PO Last administered on 02/15/17 20: 35; Admin Dose 80 MG; Start 02/09/17 at 21:00 Docusate Sodium (Colace) 100 mg BID PRN PO CONSTIPATION Last administered on 05:26; Admin Dose 100 MG; Start 02/09/17 at 15:30 Multivitamins Therapeutic (Theragran) 1 tab DAILY PO Last administered on 09:13; Admin Dose 1 TAB; Start 02/10/17 at 09:00 Lisinopril 2.5 mg 2.5 mg DAILY PO Last administered on 02/15/17 09:08; Admin Dose 2.5 MG; Start 02/11/17 at 09:00 Meropenem (Merrem 500 Mg/ 100 ml (Pmx)) 100 ml @ 200 mls/hr Q12 IVPB Last administered on 02/16/17 09:13; Admin Dose 200 MLS/HR; Start 02/11/17 at 12:00 Carvedilol (Coreg) 1.5625 mg BID PO Last administered on 02/15/17 09:09; Admin Dose 1.5625 MG; Start 02/11/17 at 21:00 Tamsulosin HCl 0.4 mg 0.4 mg HS PO Last administered on 02/15/17 20:35; Admin Dose 0.4 MG; Start 02/12/17 at 21:00 Vancomycin HCl (Vancocin) 250 ml @ 125 mls/hr Q12H IVPB Last administered on 15:07; Admin Dose 125 MLS/HR; Start 02/15/17 at 02:00 Miscellaneous Information (*Rx Drug Level Order Reminder*) VANCOMYCIN TROUGH AT 0100 ONCE ONCE XX ; Start 02/17/17 at 01:00; Stop 02/17/17 at 01:01 CAROLINA FARR February 16, 2017 17:30
[2017-02-16 19:34] VITALS: BP 96/53; RESP 18
[2017-02-16] MEDS: TAMSULOSIN (SR) 0.4 MG CAP PO SCH (20:58)
[2017-02-16] MEDS: ATORVASTATIN 80 MG TAB PO SCH (20:58)
[2017-02-17] MEDS: VANCOMYCIN 1 GM in NS 250 ML IVPB SCH ×2 (02:40→14:45)
[2017-02-17 06:11] LABS: ADD SCAN DIFF NO
[2017-02-17 06:19] LABS: BASOPHILS % 0.3 % (0.0-2.0); EOSINOPHILS # 0.3 10^3/ul (0.0-0.5); EOSINOPHILS % 3.5 % (0.0-7.0); HEMATOCRIT 32.6 % (42.0-52.0); HEMOGLOBIN 10.9 g/dl (14.0-18.0); LYMPHOCYTES # 1.8 10^3/ul (0.8-2.9); LYMPHOCYTES % 23.4 % (15.0-51.0); MEAN CORPUSCULAR HEMOGLOBIN 30.4 pg (29.0-33.0); MEAN CORPUSCULAR HGB CONC 33.4 g/dl (32.0-37.0); MEAN CORPUSCULAR VOLUME 90.8 fl (82.0-101.0); MEAN PLATELET VOLUME 10.4 fl (7.4-10.4); MONOCYTE # 0.7 10^3/ul (0.3-0.9); MONOCYTES % 8.6 % (0.0-11.0); NEUTROPHILS % 63.8 % (39.0-77.0); PLATELET COUNT 151 10^3/UL (140-415); RED BLOOD COUNT 3.59 10^6/ul (4.70-6.10); WHITE BLOOD COUNT 7.8 10^3/ul (4.8-10.8)
[2017-02-17 06:46] LABS: CALCIUM 8.9 mg/dl (8.4-10.2); CREATININE 0.64 mg/dl (0.61-1.24); POTASSIUM 3.9 mmol/L (3.5-5.1)
[2017-02-17 08:03] VITALS: BP 111/65; RESP 18
--- NOTE | 2017-02-17 09:16 | PN ---
DATE: 02/17/2017 SUBJECTIVE: Urinary tract infection and high post-void residual urine. The patient is comfortable a nd denies having any pain. OBJECTIVE: VITAL SIGNS: Temperature 97.5, the blood pressure 111/65, pulse 68, respirations 18. The patient has been voiding and he has a condom catheter on, and the postvoid residual has been garrett cked by the nurses at different times, one time they put that he had 270 mL after 2 hours, probably 2 hours after he voided. Another time, the postvoid the patient voided about 100 mL and the postvoid residual was 222, as long as postvoid residual is less than 300 we do not have to do any straight c atheterization on him. The patient in the meantime, is on meropenem for his ESBL UTI and he is on Ta msulosin. PLAN: To continue the same. Dictated By: RONNIE SIBLEY/ARCHIE Conf#: [id number] DID#: [id number]
[2017-02-17] MEDS: MULTIVITAMINS THERAPEUTIC TAB PO SCH (09:36)
[2017-02-17] MEDS: LISINOPRIL 5 MG TAB PO SCH (09:36)
[2017-02-17] MEDS: MEROPENEM 500 MG/100 ML (PMX) 100 ML IVPB SCH ×2 (09:37→22:03)
[2017-02-17 09:40] VITALS: BP 106/58; PULSE 71
--- NOTE | 2017-02-17 12:23 | PN ---
Date/Time of Note Date/Time of Note DATE: 02/17/17 TIME: 12:17 Assessment/Plan Lines/Catheters IV Catheter Type (from Nrs): Saline Lock Urinary Cath still in place: No Assessment/Plan Assessment/Plan - Dysphagia- - gi consult- dr Cheney notified for possible GT placement - E. coli E. coli ESBL urinary tract infection, continue meropenem, Dr. Bond is following in ID consultation. - Healthcare associated pneumonia versus aspiration, continue broad-spectrum antibiotics. Pending's video swallow evaluation. - Hematuria secondary to urinary tract infection, resolving. Dr. Muhammad is following in urology consultation. - Coronary artery disease status post non-ST elevation myocardial infarction with ischemic cardiomyopathy. Continue Coreg. 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 Dr. Guan is following in cardiology consultation. - Hypertension. Continue lisinopril. - Dyslipidemia. Continue statin. Anticipate discharge to nursing home facility upon completion of meropenem for a E. coli ESBL possibly Tuesday, discussed with case management. Further recommendations based on clinical course. Plan of care discussed with Dr. Sanders. Subjective 24 Hr Interval Summary Free Text/Dictation failed post video swallow evaluation-we will get GI consult Dr. Irene notified for possible plan for G-tube placement, remains afebrile. Discussed with the staff. Eyes: no complaints ENT: no complaints Respiratory: no complaints Cardiovascular: no complaints Genitourinary: no complaints Musculoskeletal: no complaints Skin: no complaints Exam/Review of Systems Vital Signs Vitals Vital Signs Date Time Temp Pulse Resp B/P Pulse Ox O2 Delivery O2 Flow Rate FiO2 02/17/17 09:40 71 106/58 02/17/17 08:03 97.5 18 95 02/14/17 20:35 21 02/13/17 22:00 Nasal Cannula 2.0 Intake and Output 02/16/17 02/16/17 02/17/17 15:00 23:00 07:00 Intake Total 100 ml 1330 ml 950 ml Output Total 1140 ml 915 ml Balance 100 ml 190 ml 35 ml Exam Constitutional: alert, well developed Psych: no complaints Eyes: nl sclera ENMT: nl external ears & nose Neck: non-tender Respiratory: clear to auscultation Cardiovascular: nl pulses Gastrointestinal: non-tender, soft Musculoskeletal: nl extremities to inspection Extremities: normal pulses 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: nl speech, other Skin: other Lymph: nontender Results Result Diagram: 02/17/17 0530 02/17/17 0530 Results 24 hrs Laboratory Tests Test 02/17/17 00:55 02/17/17 05:30 Vancomycin Level Trough 13.3 White Blood Count 7.8 Red Blood Count 3.59 L Hemoglobin 10.9 L Hematocrit 32.6 L Mean Corpuscular Volume 90.8 Mean Corpuscular Hemoglobin 30.4 Mean Corpuscular Hemoglobin Concent 33.4 Red Cell Distribution Width 13.0 Platelet Count 151 Mean Platelet Volume 10.4 Neutrophils % 63.8 Lymphocytes % 23.4 Monocytes % 8.6 Eosinophils % 3.5 Basophils % 0.3 Nucleated Red Blood Cells % 0.0 Neutrophils # 5.0 Lymphocytes # 1.8 Monocytes # 0.7 Eosinophils # 0.3 Basophils # 0.0 Nucleated Red Blood Cells # 0.0 Sodium Level 137 Potassium Level 3.9 Chloride Level 104 Carbon Dioxide Level 28 Anion Gap 9 Blood Urea Nitrogen 16 Creatinine 0.64 Glucose Level 90 Calcium Level 8.9 Medications Medications Current Medications Acetaminophen (Tylenol Tab) 650 mg Q4 PRN PO ELEVATED TEMPERATURE; Start at 15:30 Acetaminophen (Tylenol Tab) 650 mg Q4 PRN PO MILD PAIN LEVEL 1-3 Last administered on 02/13/17 17:37; Admin Dose 650 MG; Start 02/09/17 at 15:30 Atorvastatin Calcium (Lipitor) 80 mg QHS PO Last administered on 02/16/17 20: 58; Admin Dose 80 MG; Start 02/09/17 at 21:00 Docusate Sodium (Colace) 100 mg BID PRN PO CONSTIPATION Last administered on 05:26; Admin Dose 100 MG; Start 02/09/17 at 15:30 Multivitamins Therapeutic (Theragran) 1 tab DAILY PO Last administered on 09:36; Admin Dose 1 TAB; Start 02/10/17 at 09:00 Lisinopril 2.5 mg 2.5 mg DAILY PO Last administered on 02/17/17 09:36; Admin Dose 2.5 MG; Start 02/11/17 at 09:00 Meropenem (Merrem 500 Mg/ 100 ml (Pmx)) 100 ml @ 200 mls/hr Q12 IVPB Last administered on 02/17/17 09:37; Admin Dose 200 MLS/HR; Start 02/11/17 at 12:00 Carvedilol (Coreg) 1.5625 mg BID PO Last administered on 02/17/17 09:39; Admin Dose 1.5625 MG; Start 02/11/17 at 21:00 Tamsulosin HCl 0.4 mg 0.4 mg HS PO Last administered on 02/16/17 20:58; Admin Dose 0.4 MG; Start 02/12/17 at 21:00 Vancomycin HCl (Vancocin) 250 ml @ 125 mls/hr Q12H IVPB Last administered on 02:40; Admin Dose 125 MLS/HR; Start 02/15/17 at 02:00 DANY MCKEON February 17, 2017 12:23
--- NOTE | 2017-02-17 13:32 | CONS ---
Date/Time of Note Date/Time of Note DATE: 02/17/17 TIME: 13:31 Assessment/Plan Assessment/Plan Chief Complaint/Hosp Course SUBJECTIVE: No acute events per report, alert, feels good, no fevers. DIAGNOSTICS: Chest x-ray from 02/12 revealed patchy infiltrate in the right lower zone. MICROBIOLOGY: Urine culture on admission grew E. coli ESBL. ANTIMICROBIALS: Vancomycin Merrem. INDWELLINGS: Maradiaga catheter. PHYSICAL EXAMINATION: GENERAL: Fragile chronically ill-appearing elderly man who is awake, in no distress. HEENT: Head atraumatic, normocephalic. Sclerae anicteric. Buccal mucosa dry. NECK: Supple, trachea midline. CHEST: Rise symmetrical. Breath sounds with scattered rhonchi. HEART: S1, S2. ABDOMEN: Soft, bowel tones present. EXTREMITIES: No cyanosis. ASSESSMENT: 1. Sepsis. 2. Healthcare-associated pneumonia, possibly ongoing aspiration. 3. Escherichia coli extended-spectrum beta-lactamase urinary tract infection. 4. Dementia. 5. Dysphagia. PLAN: Remains stable. Continue on current antimicrobials. Continue anti- aspiration measures. DW staff/pt Problems: Consultation Date/Type/Reason Admit Date/Time February 10, 2017 at 10:43 Type of Consultation: id Referring Provider: JOHN ALANIS MD Exam/Review of Systems Vital Signs Vitals Vital Signs Date Time Temp Pulse Resp B/P Pulse Ox O2 Delivery O2 Flow Rate FiO2 02/17/17 09:40 71 106/58 02/17/17 08:03 97.5 18 95 02/14/17 20:35 21 02/13/17 22:00 Nasal Cannula 2.0 Intake and Output 02/16/17 02/16/17 02/17/17 15:00 23:00 07:00 Intake Total 100 ml 1330 ml 950 ml Output Total 1140 ml 915 ml Balance 100 ml 190 ml 35 ml Results Result Diagram: 02/17/17 0530 02/17/17 0530 Results 24 hrs Laboratory Tests Test 02/17/17 00:55 02/17/17 05:30 Vancomycin Level Trough 13.3 White Blood Count 7.8 Red Blood Count 3.59 L Hemoglobin 10.9 L Hematocrit 32.6 L Mean Corpuscular Volume 90.8 Mean Corpuscular Hemoglobin 30.4 Mean Corpuscular Hemoglobin Concent 33.4 Red Cell Distribution Width 13.0 Platelet Count 151 Mean Platelet Volume 10.4 Neutrophils % 63.8 Lymphocytes % 23.4 Monocytes % 8.6 Eosinophils % 3.5 Basophils % 0.3 Nucleated Red Blood Cells % 0.0 Neutrophils # 5.0 Lymphocytes # 1.8 Monocytes # 0.7 Eosinophils # 0.3 Basophils # 0.0 Nucleated Red Blood Cells # 0.0 Sodium Level 137 Potassium Level 3.9 Chloride Level 104 Carbon Dioxide Level 28 Anion Gap 9 Blood Urea Nitrogen 16 Creatinine 0.64 Glucose Level 90 Calcium Level 8.9 Medications Medications Current Medications Acetaminophen (Tylenol Tab) 650 mg Q4 PRN PO ELEVATED TEMPERATURE; Start at 15:30 Acetaminophen (Tylenol Tab) 650 mg Q4 PRN PO MILD PAIN LEVEL 1-3 Last administered on 02/13/17 17:37; Admin Dose 650 MG; Start 02/09/17 at 15:30 Atorvastatin Calcium (Lipitor) 80 mg QHS PO Last administered on 02/16/17 20: 58; Admin Dose 80 MG; Start 02/09/17 at 21:00 Docusate Sodium (Colace) 100 mg BID PRN PO CONSTIPATION Last administered on 05:26; Admin Dose 100 MG; Start 02/09/17 at 15:30 Multivitamins Therapeutic (Theragran) 1 tab DAILY PO Last administered on 09:36; Admin Dose 1 TAB; Start 02/10/17 at 09:00 Lisinopril 2.5 mg 2.5 mg DAILY PO Last administered on 02/17/17 09:36; Admin Dose 2.5 MG; Start 02/11/17 at 09:00 Meropenem (Merrem 500 Mg/ 100 ml (Pmx)) 100 ml @ 200 mls/hr Q12 IVPB Last administered on 02/17/17 09:37; Admin Dose 200 MLS/HR; Start 02/11/17 at 12:00 Carvedilol (Coreg) 1.5625 mg BID PO Last administered on 02/17/17 09:39; Admin Dose 1.5625 MG; Start 02/11/17 at 21:00 Tamsulosin HCl 0.4 mg 0.4 mg HS PO Last administered on 02/16/17 20:58; Admin Dose 0.4 MG; Start 02/12/17 at 21:00 Vancomycin HCl (Vancocin) 250 ml @ 125 mls/hr Q12H IVPB Last administered on t 02:40; Admin Dose 125 MLS/HR; Start 02/15/17 at 02:00 JAQUELIN SAMAYOA NP February 17, 2017 13:32
--- NOTE | 2017-02-17 14:04 | CONS ---
Date/Time of Note Date/Time of Note DATE: 02/17/17 TIME: 14:01 Assessment/Plan Assessment/Plan Chief Complaint/Hosp Course IMPRESSION 1. Hypotension, intermittent borderline, question relationship to ischemic cardiomyopathy. But toleratinig BB?ACEI for traetment of cmy 2. Ischemic cardiomyopathy, decreased left ventricular ejection fraction approximately 35% to 40% by echo during this hospitalization. 3. Hematuria-followed by neurologfy 4. Anemia. 5. Urinary tract infection. 6. Dyslipidemia. 7. History of coronary artery disease, status post prior non-ST elevation myocardial infarction. 8. PNA REcc: -Continue current low dose coreg/ACEI and follow BP closely as tolerated only -Follow volume status closely -Continue statin -Continue abx's and f/u cx data -Follow MS closely Problems: Consultation Date/Type/Reason Admit Date/Time February 10, 2017 at 10:43 Initial Consult Date 02/10/2017 Type of Consultation: Cardiology Reason for Consultation cardiomyopathy Referring Provider: JOHN ALANIS MD Exam/Review of Systems Vital Signs Vitals Vital Signs Date Time Temp Pulse Resp B/P Pulse Ox O2 Delivery O2 Flow Rate FiO2 02/17/17 09:40 71 106/58 02/17/17 08:03 97.5 18 95 02/14/17 20:35 21 02/13/17 22:00 Nasal Cannula 2.0 Intake and Output 02/16/17 02/16/17 02/17/17 15:00 23:00 07:00 Intake Total 100 ml 1330 ml 950 ml Output Total 1140 ml 915 ml Balance 100 ml 190 ml 35 ml Exam Review of Systems: CONSTITUTIONAL: No fevers, chills. PULMONARY: No sob CARDIOVASCULAR: No chest pain/palpitations GASTROINTESTINAL: No nausea/vomiting. GENITOURINARY: No hematuria/dysuria. MUSCULOSKELETAL: No myagias/arthalgias. PSYCHIATRIC: The patient denies depression. NEUROLOGIC: lethargic Constitutional: other (sleeping, easily arousable) Psych: no complaints Head: normocephalic ENMT: mucosa pink and moist Neck: jvd (9 cm water), supple Respiratory: diminished breath sounds (at bases/B) Cardiovascular: regular rate and rhythm Gastrointestinal: non-tender, soft Musculoskeletal: muscle tone (normal) Extremities: edema (none) 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: lethargic Results Result Diagram: 02/17/1752902/17/17529 Results 24 hrs Laboratory Tests Test 02/17/17 00:55 02/17/17 05:30 Vancomycin Level Trough 13.3 White Blood Count 7.8 Red Blood Count 3.59 L Hemoglobin 10.9 L Hematocrit 32.6 L Mean Corpuscular Volume 90.8 Mean Corpuscular Hemoglobin 30.4 Mean Corpuscular Hemoglobin Concent 33.4 Red Cell Distribution Width 13.0 Platelet Count 151 Mean Platelet Volume 10.4 Neutrophils % 63.8 Lymphocytes % 23.4 Monocytes % 8.6 Eosinophils % 3.5 Basophils % 0.3 Nucleated Red Blood Cells % 0.0 Neutrophils # 5.0 Lymphocytes # 1.8 Monocytes # 0.7 Eosinophils # 0.3 Basophils # 0.0 Nucleated Red Blood Cells # 0.0 Sodium Level 137 Potassium Level 3.9 Chloride Level 104 Carbon Dioxide Level 28 Anion Gap 9 Blood Urea Nitrogen 16 Creatinine 0.64 Glucose Level 90 Calcium Level 8.9 Medications Medications Current Medications Acetaminophen (Tylenol Tab) 650 mg Q4 PRN PO ELEVATED TEMPERATURE; Start at 15:30 Acetaminophen (Tylenol Tab) 650 mg Q4 PRN PO MILD PAIN LEVEL 1-3 Last administered on 02/13/17 17:37; Admin Dose 650 MG; Start 02/09/17 at 15:30 Atorvastatin Calcium (Lipitor) 80 mg QHS PO Last administered on 02/16/17 20: 58; Admin Dose 80 MG; Start 02/09/17 at 21:00 Docusate Sodium (Colace) 100 mg BID PRN PO CONSTIPATION Last administered on 05:26; Admin Dose 100 MG; Start 02/09/17 at 15:30 Multivitamins Therapeutic (Theragran) 1 tab DAILY PO Last administered on 09:36; Admin Dose 1 TAB; Start 02/10/17 at 09:00 Lisinopril 2.5 mg 2.5 mg DAILY PO Last administered on 02/17/17 09:36; Admin Dose 2.5 MG; Start 02/11/17 at 09:00 Meropenem (Merrem 500 Mg/ 100 ml (Pmx)) 100 ml @ 200 mls/hr Q12 IVPB Last administered on 02/17/17 09:37; Admin Dose 200 MLS/HR; Start 02/11/17 at 12:00 Carvedilol (Coreg) 1.5625 mg BID PO Last administered on 02/17/17 09:39; Admin Dose 1.5625 MG; Start 02/11/17 at 21:00 Tamsulosin HCl 0.4 mg 0.4 mg HS PO Last administered on 02/16/17 20:58; Admin Dose 0.4 MG; Start 02/12/17 at 21:00 Vancomycin HCl (Vancocin) 250 ml @ 125 mls/hr Q12H IVPB Last administered on 02:40; Admin Dose 125 MLS/HR; Start 02/15/17 at 02:00 KRISTA SOMMER February 17, 2017 14:04
[2017-02-17 19:57] VITALS: BP 107/63; RESP 19
--- NOTE | 2017-02-17 21:13 | CONS ---
DATE OF ADMISSION: 02/10/2017 DATE OF CONSULTATION: CHIEF COMPLAINT: The patient is unable to eat any food by himself and he has lost weight and he nico led a swallowing evaluation. Percutaneous endoscopic gastrostomy tube placement has been requested. PAST MEDICAL HISTORY: The history includes the patient is an 81-year-old white gentleman brought to the hospital because of history of hematuria. Please see the chart and H and P for the workup. He also has history of coronary artery disease with non-ST elevation myocardial infarction, history of hypertension and dyslipidemia. At this time, patient is unable to eat; hence, percutaneous endoscopic gastrostomy tube placement ca s been requested. CURRENT MEDICATIONS: Include: 1. Vancomycin. 2. Tamsulosin, which is Flomax. 3. Coreg. 4. Meropenem. 5. Zestril. 6. . 7. Lipitor. 8. Tylenol. 9. Colace. PHYSICAL EXAMINATION: GENERAL: The patient is an 81-year-old white gentleman who at this time is alert. He is thin built . He is cachectic. VITAL SIGNS: Temperature is 97.5, blood pressure 106/58. CARDIOVASCULAR: Normal heart sounds. RESPIRATORY: Normal breath sounds. ABDOMEN: Shows soft abdomen with no palpable masses, no tenderness, no distention. LABORATORY WORKUP: Hemoglobin 10.9, WBC 7800. The coagulation is 14.6 of prothrombin time. BUN is 16, creatinine is 0.64. Albumin is 4.3. CLINICAL IMPRESSION: The patient has failed swallow evaluation. He is cachectic and malnourished a nd lost weight, coronary artery disease. PLAN: At this time, I agree with you that the patient could benefit from a percutaneous endoscopic gastrostomy tube for long-term nutritional support. This can be performed tomorrow. Once again, doctor, thank you for this consultation. Dictated By: EVELYN JACK/ARCHIE Conf#: [id number] DID#: [id number] CC: JOHN ALANIS MD;*EndCC*
[2017-02-17] MEDS: ATORVASTATIN 80 MG TAB PO SCH (22:03)
[2017-02-17] MEDS: TAMSULOSIN (SR) 0.4 MG CAP PO SCH (22:03)
[2017-02-18] VITALS (11 sets, daily range): BP systolic 92–111; BP diastolic 58–64; PULSE 64–71; RESP 13–20
[2017-02-18] MEDS: VANCOMYCIN 1 GM in NS 250 ML IVPB SCH ×2 (02:11→13:57)
[2017-02-18 06:16] LABS: ADD SCAN DIFF NO
[2017-02-18 06:32] LABS: BASOPHILS % 0.2 % (0.0-2.0); EOSINOPHILS # 0.3 10^3/ul (0.0-0.5); EOSINOPHILS % 3.2 % (0.0-7.0); HEMATOCRIT 31.6 % (42.0-52.0); HEMOGLOBIN 10.6 g/dl (14.0-18.0); LYMPHOCYTES # 1.7 10^3/ul (0.8-2.9); LYMPHOCYTES % 21.2 % (15.0-51.0); MEAN CORPUSCULAR HEMOGLOBIN 30.5 pg (29.0-33.0); MEAN CORPUSCULAR HGB CONC 33.5 g/dl (32.0-37.0); MEAN CORPUSCULAR VOLUME 91.1 fl (82.0-101.0); MEAN PLATELET VOLUME 10.8 fl (7.4-10.4); MONOCYTE # 0.7 10^3/ul (0.3-0.9); MONOCYTES % 7.9 % (0.0-11.0); NEUTROPHIL # 5.5 10^3/ul (1.6-7.5); NEUTROPHILS % 66.9 % (39.0-77.0); PLATELET COUNT 174 10^3/UL (140-415); RED BLOOD COUNT 3.47 10^6/ul (4.70-6.10); RED CELL DISTRIBUTION WIDTH 12.8 % (11.5-14.5); WHITE BLOOD COUNT 8.2 10^3/ul (4.8-10.8)
[2017-02-18 06:54] LABS: CALCIUM 8.9 mg/dl (8.4-10.2); CREATININE 0.61 mg/dl (0.61-1.24); POTASSIUM 3.7 mmol/L (3.5-5.1)
[2017-02-18] MEDS ORDERED: PROPOFOL 20 ML ONE (07:53)
[2017-02-18] MEDS ORDERED: FENTAnyl 50 MCG/ML VIAL IV PRN (08:00)
[2017-02-18] MEDS ORDERED: MEPERIDINE 25 MG INJ IV PRN (08:00)
[2017-02-18] MEDS ORDERED: ONDANSETRON 4 MG INJ IV PRN (08:00)
[2017-02-18] MEDS ORDERED: CEFAZOLIN 2 GM/50 ML (PMX) 50 ML IVPB ONE (08:09)
--- NOTE | 2017-02-18 08:58 | GILP ---
DATE OF PROCEDURE: NAME OF PROCEDURE: Esophagogastroduodenoscopy and percutaneous endoscopic gastrostomy tube placemen t. PREOPERATIVE DIAGNOSIS: The patient presenting with history of difficulty in swallowing, weight los s. He has got history of failed swallow evaluation. Because of this, procedure is performed to cre ate access for long-term nutritional support. POSTOPERATIVE DIAGNOSIS: The patient presenting with history of difficulty in swallowing, weight lo ss. He has got history of failed swallow evaluation. Because of this, procedure is performed to cr eate access for long-term nutritional support. DESCRIPTION OF PROCEDURE: After the informed written consent was obtained, the patient was asked to lie in the supine position. Intravenous anesthesia was given by anesthesiologist, Dr. Aburto. Whe n the patient became somnolent, the Olympus video upper endoscope was introduced into the oropharynx , then into the esophagus. Esophagus appeared normal. Stomach appeared normal. Duodenum appeared normal. Endoscope at this time was withdrawn to the level of the gastric cavity. The anterior abdo tati wall was prepared with Betadine and alcohol, 2 mL of 2% Xylocaine was infiltrated at the endos copic illuminating site. At this site, a 5 mm incision was made by using the scalpel. At this time , through the incision, trocar was inserted and the stylet was removed. Through the trocar, a guid ewire was inserted into the stomach. The guidewire was grabbed with a polypectomy snare and then gu idewire was brought out through the mouth along with the endoscope. Through this end of the guidewi re, a #20 Microvasive G-tube was tied in a loop fashion and then it was brought out through the abdo tati wall. The retention bumper was placed over the G-tube close to the skin. Tapered end of the gastrostomy tube was cut, the adapter was placed, and the procedure was terminated. PLAN: Recommend starting G-tube feeding in a.m. Dictated By: EVELYN JACK/ARCHIE Conf#: [id number] DID#: [id number] CC: JOHN ALANIS MD;*EndCC*
[2017-02-18] MEDS: MULTIVITAMINS THERAPEUTIC TAB PO SCH (09:00)
[2017-02-18] MEDS: LISINOPRIL 5 MG TAB PO SCH (09:00)
[2017-02-18] MEDS: MEROPENEM 500 MG/100 ML (PMX) 100 ML IVPB SCH ×2 (09:54→21:02)
[2017-02-18] MEDS: DEXTROSE 5%-0.45% NACL 1,000 ML IV SCH ×2 (10:22→23:50)
--- NOTE | 2017-02-18 15:10 | RADRPT ---
PROCEDURE: XR Chest. CLINICAL INDICATION: Pneumonia TECHNIQUE: Single AP portable chest COMPARISON: 02/15/2017 Chest x-ray FINDINGS: The cardiomediastinal silhouette is within normal limits of size. Atherosclerotic calcification of t he aorta. Near complete resolution of right lower lobe air space opacity compatible with resolving p neumonia. Lungs are otherwise clear. No pneumothorax. The osseous structures and soft tissues are u nremarkable. IMPRESSION: 1. Near complete resolution of right lower lobe air space opacity compatible with resolving pneumoni a. No new acute intrathoracic abnormality. RPTAT:AAJJ Van Medley Physician Date Time Electronically viewed and signed by Physician Rhonda on 02/18/2017 15:09 KRYSTYNA/
--- NOTE | 2017-02-18 15:50 | CONS ---
Date/Time of Note Date/Time of Note DATE: 02/18/17 TIME: 15:46 Assessment/Plan Assessment/Plan Chief Complaint/Hosp Course IMPRESSION 1. Hypotension, intermittent borderline, question relationship to ischemic cardiomyopathy. But toleratinig BB?ACEI for traetment of cmy 2. Ischemic cardiomyopathy, decreased left ventricular ejection fraction approximately 35% to 40% by echo during this hospitalization. 3. Hematuria-followed by neurologfy 4. Anemia. 5. Urinary tract infection. 6. Dyslipidemia. 7. History of coronary artery disease, status post prior non-ST elevation myocardial infarction. 8. PNA REcc: -Continue current low dose coreg/ACEI and follow BP when able to take PO's -Follow volume status closely -Continue statin when able to take PO's -Continue abx's and f/u cx data -Follow MS closely Problems: Consultation Date/Type/Reason Admit Date/Time February 10, 2017 at 10:43 Initial Consult Date 02/10/2017 Type of Consultation: Cardiology Reason for Consultation cardiomyopathy Referring Provider: JOHN ALANIS MD Exam/Review of Systems Vital Signs Vitals Vital Signs Date Time Temp Pulse Resp B/P Pulse Ox O2 Delivery O2 Flow Rate FiO2 02/18/17 09:26 97.9 71 18 108/58 96 02/18/17 09:10 Nasal Cannula 02/18/17 09:05 3.0 02/14/17 20:35 21 Intake and Output 02/17/17 02/17/17 02/18/17 15:00 23:00 07:00 Intake Total 690 ml 550 ml Output Total 650 ml Balance 40 ml 550 ml Exam Review of Systems: CONSTITUTIONAL: No fevers, chills. PULMONARY: No sob CARDIOVASCULAR: No chest pain/palpitations GASTROINTESTINAL: No nausea/vomiting. GENITOURINARY: No hematuria/dysuria. MUSCULOSKELETAL: No myagias/arthalgias. PSYCHIATRIC: The patient denies depression. NEUROLOGIC: No weakness Constitutional: other (sleeping) Psych: no complaints Head: normocephalic ENMT: mucosa pink and moist Neck: jvd (9 cm water), supple Respiratory: diminished breath sounds Cardiovascular: regular rate and rhythm Gastrointestinal: non-tender, soft Musculoskeletal: muscle tone Extremities: edema (none) 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: other (No focal deficits) Results Result Diagram: 02/18/17 0438 02/18/17 0458 Results 24 hrs Laboratory Tests Test 02/18/17 04:38 02/18/17 04:58 White Blood Count 8.2 Red Blood Count 3.47 L Hemoglobin 10.6 L Hematocrit 31.6 L Mean Corpuscular Volume 91.1 Mean Corpuscular Hemoglobin 30.5 Mean Corpuscular Hemoglobin Concent 33.5 Red Cell Distribution Width 12.8 Platelet Count 174 Mean Platelet Volume 10.8 H Neutrophils % 66.9 Lymphocytes % 21.2 Monocytes % 7.9 Eosinophils % 3.2 Basophils % 0.2 Nucleated Red Blood Cells % 0.0 Neutrophils # 5.5 Lymphocytes # 1.7 Monocytes # 0.7 Eosinophils # 0.3 Basophils # 0.0 Nucleated Red Blood Cells # 0.0 Sodium Level 136 Potassium Level 3.7 Chloride Level 103 Carbon Dioxide Level 29 Anion Gap 8 Blood Urea Nitrogen 14 Creatinine 0.61 Glucose Level 90 Calcium Level 8.9 Medications Medications Current Medications Acetaminophen (Tylenol Tab) 650 mg Q4 PRN PO ELEVATED TEMPERATURE; Start at 15:30 Acetaminophen (Tylenol Tab) 650 mg Q4 PRN PO MILD PAIN LEVEL 1-3 Last administered on 02/13/17 17:37; Admin Dose 650 MG; Start 02/09/17 at 15:30 Atorvastatin Calcium (Lipitor) 80 mg QHS PO Last administered on 02/17/17 22: 03; Admin Dose 80 MG; Start 02/09/17 at 21:00 Docusate Sodium (Colace) 100 mg BID PRN PO CONSTIPATION Last administered on 05:26; Admin Dose 100 MG; Start 02/09/17 at 15:30 Multivitamins Therapeutic (Theragran) 1 tab DAILY PO Last administered on 09:36; Admin Dose 1 TAB; Start 02/10/17 at 09:00 Lisinopril 2.5 mg 2.5 mg DAILY PO Last administered on 02/17/17 09:36; Admin Dose 2.5 MG; Start 02/11/17 at 09:00 Meropenem (Merrem 500 Mg/ 100 ml (Pmx)) 100 ml @ 200 mls/hr Q12 IVPB Last administered on 02/18/17 09:54; Admin Dose 200 MLS/HR; Start 02/11/17 at 12:00 Carvedilol (Coreg) 1.5625 mg BID PO Last administered on 02/17/17 22:04; Admin Dose 1.5625 MG; Start 02/11/17 at 21:00 Tamsulosin HCl 0.4 mg 0.4 mg HS PO Last administered on 02/17/17 22:03; Admin Dose 0.4 MG; Start 02/12/17 at 21:00 Vancomycin HCl 250 ml @ 125 mls/hr Q12H IVPB Last administered on 02/18/17 13 :57; Admin Dose 125 MLS/HR; Start 02/15/17 at 02:00 Dextrose/Sodium Chloride (D5-1/2ns) 1,000 ml @ 75 mls/hr [id number] IV Last administered on 02/18/17 10:22; Admin Dose 75 MLS/HR; Start 02/18/17 at 10:30 KRISTA SOMMER February 18, 2017 15:50
--- NOTE | 2017-02-18 16:08 | PN ---
Date/Time of Note Date/Time of Note DATE: 02/18/17 TIME: 16:05 Assessment/Plan VTE Prophylaxis VTE Prophylaxis Intervention: SCD's Lines/Catheters IV [facility] Peripheral IV Urinary Cath still in place: No Assessment/Plan Chief Complaint/Hosp Course - Dysphagia status post G-tube placement by Dr. Cheney today, will start G-tube feeding tomorrow. - E. coli E. coli ESBL urinary tract infection, continue meropenem, Dr. oBnd is following in ID consultation. - Healthcare associated pneumonia versus aspiration, continue broad-spectrum antibiotics. Pending's video swallow evaluation. - Hematuria secondary to urinary tract infection, resolving. Dr. Muhammad is following in urology consultation. - Coronary artery disease status post non-ST elevation myocardial infarction with ischemic cardiomyopathy. Continue Coreg. 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 Dr. Guan is following in cardiology consultation. - Hypertension. Continue lisinopril. - Dyslipidemia. Continue statin. Further recommendations based on clinical course. Plan of care discussed with Dr. Sanders. Problems: Subjective 24 Hr Interval Summary Free Text/Dictation Patient is status post G-tube placement today in a.m., tolerated procedure well , remains afebrile. Exam/Review of Systems Vital Signs Vitals Vital Signs Date Time Temp Pulse Resp B/P Pulse Ox O2 Delivery O2 Flow Rate FiO2 02/18/17 09:26 97.9 71 18 108/58 96 02/18/17 09:10 Nasal Cannula 02/18/17 09:05 3.0 02/14/17 20:35 21 Intake and Output 02/17/17 02/17/17 02/18/17 15:00 23:00 07:00 Intake Total 690 ml 550 ml Output Total 650 ml Balance 40 ml 550 ml Exam Constitutional: alert, oriented Psych: no complaints Head: atraumatic, normocephalic ENMT: nl external ears & nose, other (Hard of hearing) Neck: non-tender, supple Respiratory: clear to auscultation Cardiovascular: regular rate and rhythm Gastrointestinal: non-tender, soft, G tube Genitourinary - Male: other (Maradiaga catheter ) Musculoskeletal: nl extremities to inspection Extremities: normal pulses 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: [employer] II-XII intact Results Result Diagram: 02/18/17 0438 02/18/17 0458 Results 24 hrs Laboratory Tests Test 02/18/17 04:38 02/18/17 04:58 White Blood Count 8.2 Red Blood Count 3.47 L Hemoglobin 10.6 L Hematocrit 31.6 L Mean Corpuscular Volume 91.1 Mean Corpuscular Hemoglobin 30.5 Mean Corpuscular Hemoglobin Concent 33.5 Red Cell Distribution Width 12.8 Platelet Count 174 Mean Platelet Volume 10.8 H Neutrophils % 66.9 Lymphocytes % 21.2 Monocytes % 7.9 Eosinophils % 3.2 Basophils % 0.2 Nucleated Red Blood Cells % 0.0 Neutrophils # 5.5 Lymphocytes # 1.7 Monocytes # 0.7 Eosinophils # 0.3 Basophils # 0.0 Nucleated Red Blood Cells # 0.0 Sodium Level 136 Potassium Level 3.7 Chloride Level 103 Carbon Dioxide Level 29 Anion Gap 8 Blood Urea Nitrogen 14 Creatinine 0.61 Glucose Level 90 Calcium Level 8.9 Medications Medications Current Medications Acetaminophen (Tylenol Tab) 650 mg Q4 PRN PO ELEVATED TEMPERATURE; Start at 15:30 Acetaminophen (Tylenol Tab) 650 mg Q4 PRN PO MILD PAIN LEVEL 1-3 Last administered on 02/13/17 17:37; Admin Dose 650 MG; Start 02/09/17 at 15:30 Atorvastatin Calcium (Lipitor) 80 mg QHS PO Last administered on 02/17/17 22: 03; Admin Dose 80 MG; Start 02/09/17 at 21:00 Docusate Sodium (Colace) 100 mg BID PRN PO CONSTIPATION Last administered on 05:26; Admin Dose 100 MG; Start 02/09/17 at 15:30 Multivitamins Therapeutic (Theragran) 1 tab DAILY PO Last administered on 09:36; Admin Dose 1 TAB; Start 02/10/17 at 09:00 Lisinopril 2.5 mg 2.5 mg DAILY PO Last administered on 02/17/17 09:36; Admin Dose 2.5 MG; Start 02/11/17 at 09:00 Meropenem (Merrem 500 Mg/ 100 ml (Pmx)) 100 ml @ 200 mls/hr Q12 IVPB Last administered on 02/18/17 09:54; Admin Dose 200 MLS/HR; Start 02/11/17 at 12:00 Carvedilol (Coreg) 1.5625 mg BID PO Last administered on 02/17/17 22:04; Admin Dose 1.5625 MG; Start 02/11/17 at 21:00 Tamsulosin HCl 0.4 mg 0.4 mg HS PO Last administered on 02/17/17 22:03; Admin Dose 0.4 MG; Start 02/12/17 at 21:00 Vancomycin HCl 250 ml @ 125 mls/hr Q12H IVPB Last administered on 02/18/17 13 :57; Admin Dose 125 MLS/HR; Start 02/15/17 at 02:00 Dextrose/Sodium Chloride (D5-1/2ns) 1,000 ml @ 75 mls/hr [id number] IV Last administered on 02/18/17 10:22; Admin Dose 75 MLS/HR; Start 02/18/17 at 10:30 CAROLINA FARR February 18, 2017 16:08
--- NOTE | 2017-02-18 18:05 | CONS ---
Date/Time of Note Date/Time of Note DATE: 02/18/17 TIME: 18:03 Assessment/Plan Assessment/Plan Chief Complaint/Hosp Course SUBJECTIVE: No acute events per report, no fevers, cxr improved MICROBIOLOGY: Urine culture on admission grew E. coli ESBL. ANTIMICROBIALS: Vancomycin Merrem. INDWELLINGS: Maradiaga catheter. PHYSICAL EXAMINATION: GENERAL: Fragile chronically ill-appearing elderly man who is awake, in no distress. HEENT: Head atraumatic, normocephalic. Sclerae anicteric. Buccal mucosa dry. NECK: Supple, trachea midline. CHEST: Rise symmetrical. Breath sounds with scattered rhonchi. HEART: S1, S2. ABDOMEN: Soft, bowel tones present. EXTREMITIES: No cyanosis. ASSESSMENT: 1. Resolving sepsis. 2. Healthcare-associated pneumonia, possibly ongoing aspiration===> resolving. 3. Escherichia coli extended-spectrum beta-lactamase urinary tract infection. 4. Dementia. 5. Dysphagia. PLAN: Remains stable. CXR improving. Continue on current antimicrobials for 5 more days Continue anti-aspiration measures. DW staff/pt Problems: Consultation Date/Type/Reason Admit Date/Time February 10, 2017 at 10:43 Type of Consultation: ID Referring Provider: JOHN ALANIS MD Exam/Review of Systems Vital Signs Vitals Vital Signs Date Time Temp Pulse Resp B/P Pulse Ox O2 Delivery O2 Flow Rate FiO2 02/18/17 16:03 Nasal Cannula 3.0 02/18/17 09:26 97.9 71 18 108/58 96 02/14/17 20:35 21 Intake and Output 02/17/17 02/17/17 02/18/17 15:00 23:00 07:00 Intake Total 690 ml 550 ml Output Total 650 ml Balance 40 ml 550 ml Results Result Diagram: 02/18/17 0438 02/18/17 0458 Results 24 hrs Laboratory Tests Test 02/18/17 04:38 02/18/17 04:58 White Blood Count 8.2 Red Blood Count 3.47 L Hemoglobin 10.6 L Hematocrit 31.6 L Mean Corpuscular Volume 91.1 Mean Corpuscular Hemoglobin 30.5 Mean Corpuscular Hemoglobin Concent 33.5 Red Cell Distribution Width 12.8 Platelet Count 174 Mean Platelet Volume 10.8 H Neutrophils % 66.9 Lymphocytes % 21.2 Monocytes % 7.9 Eosinophils % 3.2 Basophils % 0.2 Nucleated Red Blood Cells % 0.0 Neutrophils # 5.5 Lymphocytes # 1.7 Monocytes # 0.7 Eosinophils # 0.3 Basophils # 0.0 Nucleated Red Blood Cells # 0.0 Sodium Level 136 Potassium Level 3.7 Chloride Level 103 Carbon Dioxide Level 29 Anion Gap 8 Blood Urea Nitrogen 14 Creatinine 0.61 Glucose Level 90 Calcium Level 8.9 Medications Medications Current Medications Acetaminophen (Tylenol Tab) 650 mg Q4 PRN PO ELEVATED TEMPERATURE; Start at 15:30 Acetaminophen (Tylenol Tab) 650 mg Q4 PRN PO MILD PAIN LEVEL 1-3 Last administered on 02/13/17 17:37; Admin Dose 650 MG; Start 02/09/17 at 15:30 Atorvastatin Calcium (Lipitor) 80 mg QHS PO Last administered on 02/17/17 22: 03; Admin Dose 80 MG; Start 02/09/17 at 21:00 Docusate Sodium (Colace) 100 mg BID PRN PO CONSTIPATION Last administered on 05:26; Admin Dose 100 MG; Start 02/09/17 at 15:30 Multivitamins Therapeutic (Theragran) 1 tab DAILY PO Last administered on 09:36; Admin Dose 1 TAB; Start 02/10/17 at 09:00 Lisinopril 2.5 mg 2.5 mg DAILY PO Last administered on 02/17/17 09:36; Admin Dose 2.5 MG; Start 02/11/17 at 09:00 Meropenem (Merrem 500 Mg/ 100 ml (Pmx)) 100 ml @ 200 mls/hr Q12 IVPB Last administered on 02/18/17 09:54; Admin Dose 200 MLS/HR; Start 02/11/17 at 12:00 Carvedilol (Coreg) 1.5625 mg BID PO Last administered on 02/17/17 22:04; Admin Dose 1.5625 MG; Start 02/11/17 at 21:00 Tamsulosin HCl 0.4 mg 0.4 mg HS PO Last administered on 02/17/17 22:03; Admin Dose 0.4 MG; Start 02/12/17 at 21:00 Vancomycin HCl 250 ml @ 125 mls/hr Q12H IVPB Last administered on 5/19/17at 13 :57; Admin Dose 125 MLS/HR; Start 02/15/17 at 02:00 Dextrose/Sodium Chloride (D5-1/2ns) 1,000 ml @ 75 mls/hr [id number] IV Last administered on 02/18/17t 10:22; Admin Dose 75 MLS/HR; Start 02/18/17 at 10:30 JAQUELIN SAMAYOA NP February 18, 2017 18:05
[2017-02-18] MEDS: TAMSULOSIN (SR) 0.4 MG CAP PO SCH (21:00)
[2017-02-18] MEDS: ATORVASTATIN 80 MG TAB PO SCH (21:00)
[2017-02-19] MEDS: VANCOMYCIN 1 GM in NS 250 ML IVPB SCH ×2 (02:07→16:56)
[2017-02-19 05:38] LABS: ADD SCAN DIFF NO
[2017-02-19 05:45] LABS: BASOPHILS % 0.3 % (0.0-2.0); EOSINOPHILS # 0.2 10^3/ul (0.0-0.5); EOSINOPHILS % 3.1 % (0.0-7.0); HEMOGLOBIN 11.1 g/dl (14.0-18.0); LYMPHOCYTES # 1.7 10^3/ul (0.8-2.9); LYMPHOCYTES % 22.5 % (15.0-51.0); MEAN CORPUSCULAR HEMOGLOBIN 30.6 pg (29.0-33.0); MEAN CORPUSCULAR HGB CONC 33.6 g/dl (32.0-37.0); MEAN CORPUSCULAR VOLUME 90.9 fl (82.0-101.0); MEAN PLATELET VOLUME 10.3 fl (7.4-10.4); MONOCYTE # 0.6 10^3/ul (0.3-0.9); MONOCYTES % 8.6 % (0.0-11.0); NEUTROPHIL # 4.8 10^3/ul (1.6-7.5); NEUTROPHILS % 65.1 % (39.0-77.0); PLATELET COUNT 189 10^3/UL (140-415); RED BLOOD COUNT 3.63 10^6/ul (4.70-6.10); RED CELL DISTRIBUTION WIDTH 12.8 % (11.5-14.5); WHITE BLOOD COUNT 7.4 10^3/ul (4.8-10.8)
[2017-02-19 06:02] LABS: POTASSIUM 3.7 mmol/L (3.5-5.1)
[2017-02-19 06:04] LABS: CREATININE 0.58 mg/dl (0.61-1.24)
[2017-02-19 07:28] VITALS: BP 96/61; RESP 18
--- NOTE | 2017-02-19 08:04 | PN ---
DATE: 02/11/2017 SUBJECTIVE: The patient himself does not complain of any pain. He had high postvoid residual befor e and he has, however, been voiding. He does have a condom catheter which he removes himself. OBJECTIVE: VITAL SIGNS: His temperature is 97.9, blood pressure 108/58, respirations 18, pulse is 71. ABDOMEN: Soft. The condom catheter that he has is off but the drainage bag has about 300 mL of kendrick ar urine in it. LABORATORY DATA: His CBC shows a white count of 8.2, hemoglobin 10.6, hematocrit 31.6, platelet cou nt 174,000. BUN is 14, creatinine 0.61. Electrolytes are normal. IMPRESSION: This patient is voiding and the postvoid residual is not high to where he needs to be c atheterized and the postvoid was around 55 mL last time. Therefore, we shall stop doing the postvoi d residual on him as he is urinating reasonably well. Another postvoid residual that was done today was around 80 mL. Dictated By: RONNIE SIBLEY/ARCHIE Conf#: [id number] DID#: [id number]
[2017-02-19] MEDS: MEROPENEM 500 MG/100 ML (PMX) 100 ML IVPB SCH ×2 (09:03→20:32)
[2017-02-19] MEDS: MULTIVITAMINS THERAPEUTIC TAB PO SCH (09:04)
[2017-02-19] MEDS: DEXTROSE 5%-0.45% NACL 1,000 ML IV SCH (09:06)
[2017-02-19] MEDS: LISINOPRIL 5 MG TAB PO SCH (09:16)
--- NOTE | 2017-02-19 11:52 | PDOCDIS ---
Discharge Instructions CONDITION Patient Condition: Stable HOME CARE INSTRUCTIONS: Special Diet: NPO, will start GT feeding in am ACTIVITY: Activity Restrictions: No Restrictions Rest between Activity FOLLOW UP/APPOINTMENTS Appointments Follow-up with GI as recommended Call 911 and are send to the nearest hospital if the symptoms get worsen. Discussed with the staff DANY MCKEON February 19, 2017 11:52
--- NOTE | 2017-02-19 11:53 | DS ---
Date/Time of Note Date/Time of Note DATE: 02/19/17 TIME: 11:53 Discharge Summary Admission/Discharge Info Admit Date/Time February 10, 2017 at 10:43 Discharge Date/Time Patient Condition: Stable Hospital Course SUBJECTIVE: No acute events per report, no fevers, cxr improved MICROBIOLOGY: Urine culture on admission grew E. coli ESBL. ANTIMICROBIALS: Vancomycin Merrem. INDWELLINGS: Maradiaga catheter. PHYSICAL EXAMINATION: GENERAL: Fragile chronically ill-appearing elderly man who is awake, in no distress. HEENT: Head atraumatic, normocephalic. Sclerae anicteric. Buccal mucosa dry. NECK: Supple, trachea midline. CHEST: Rise symmetrical. Breath sounds with scattered rhonchi. HEART: S1, S2. ABDOMEN: Soft, bowel tones present. EXTREMITIES: No cyanosis. ASSESSMENT: 1. Resolving sepsis. 2. Healthcare-associated pneumonia, possibly ongoing aspiration===> resolving. 3. Escherichia coli extended-spectrum beta-lactamase urinary tract infection. 4. Dementia. 5. Dysphagia. PLAN: Remains stable. CXR improving. Continue on current antimicrobials for 5 more days Continue anti-aspiration measures. DW staff/pt Home Meds Reported Medications Hydrocodone/Acetaminophen ([place] 5-325 Tablet) 1 Each Tablet, 1 EACH PO Q6 Y for MOD, TAB HOLD FOR SEDATION HOLD IF RR IS 12 OR BELOW AND NOTIFY MD/TEST HOLE DRILLER 02/09/17 Multivitamins* (Theragran*) 1 Tab Tab, 1 TAB PO DAILY, TAB 02/09/17 Docusate Sodium* (Docusate Sodium*) 100 Mg Capsule, 100 MG PO BID Y for CONSTIPATION, #60 CAP 02/09/17 Carvedilol* (Carvedilol*) 3.125 Mg Tablet, 3.125 MG PO BID, #60 TAB 02/09/17 Atorvastatin* (Atorvastatin*) 80 Mg Tablet, 80 MG PO QHS, #30 TAB 02/09/17 Aspirin (Low Dose Aspirin) 81 Mg Tablet.dr, 81 MG PO DAILY, #30 TAB 02/09/17 Acetaminophen* (Acetaminophen*) 650 Mg Tablet, 650 MG PO Q4 Y for ELEVATED TEMPERATURE, #30 TAB 02/09/17 Acetaminophen* (Acetaminophen*) 650 Mg Tablet, 650 MG PO Q4 Y for MILD PAIN LEVEL 1-3, #30 TAB 02/09/17 Primary Care Provider Jax Sanders MD Pending Labs Laboratory Tests Test 02/19/17 04:59 White Blood Count 7.410^3/ul (4.8-10.8) Red Blood Count 3.6310^6/ul (4.70-6.10) Hemoglobin 11.1g/dl (14.0-18.0) Hematocrit 33.0% (42.0-52.0) Mean Corpuscular Volume 90.9fl (82.0-101.0) Mean Corpuscular Hemoglobin 30.6pg (29.0-33.0) Mean Corpuscular Hemoglobin Concent 33.6g/dl (32.0-37.0) Red Cell Distribution Width 12.8% (11.5-14.5) Platelet Count 72339^3/UL (140-415) Mean Platelet Volume 10.3fl (7.4-10.4) Neutrophils % 65.1% (39.0-77.0) Lymphocytes % 22.5% (15.0-51.0) Monocytes % 8.6% (0.0-11.0) Eosinophils % 3.1% (0.0-7.0) Basophils % 0.3% (0.0-2.0) Nucleated Red Blood Cells % 0.0/100WBC (0.0-0.0) Neutrophils # 4.810^3/ul (1.6-7.5) Lymphocytes # 1.710^3/ul (0.8-2.9) Monocytes # 0.610^3/ul (0.3-0.9) Eosinophils # 0.210^3/ul (0.0-0.5) Basophils # 0.010^3/ul (0.0-0.1) Nucleated Red Blood Cells # 0.010^3/ul (0.0-0.0) Sodium Level 140mmol/L (135-144) Potassium Level 3.7mmol/L (3.5-5.1) Chloride Level 101mmol/L (97-110) Carbon Dioxide Level 28mmol/L (21-31) Anion Gap 15 (8-16) Blood Urea Nitrogen 10mg/dl (7-20) Creatinine 0.58mg/dl (0.61-1.24) Glucose Level 87mg/dl (70-220) Calcium Level 9.0mg/dl (8.4-10.2) DANY MCKEON February 19, 2017 11:53
--- NOTE | 2017-02-19 12:45 | PN ---
DATE: 02/19/2017 SUBJECTIVE: Patient had urinary tract infection and hematuria, which has cleared. The patient stat es that he is comfortable and urinating well and no hematuria. OBJECTIVE: VITAL SIGNS: His temperature 97.4, blood pressure 96/61, the pulse is 67, respiration 18. ABDOMEN: Soft. LABORATORY DATA: Show a CBC with a white count of 7.4, hemoglobin 11.1, hematocrit 33.0, BUN is 10, creatinine 0.58. Electrolytes are normal. IMPRESSION: History of urinary tract infection with Escherichia coli extended-spectrum beta-lactam ases that has been treated and hematuria that has cleared, and that was because of the infection. T he patient did have also a urine cytology and that was negative for malignant cells. From a urologi coreen standpoint, he may be discharged, as it is planned today. Dictated By: RONNIE SIBLEY/ARCHIE Conf#: [id number] DID#: [id number]
--- NOTE | 2017-02-19 15:47 | CONS ---
Date/Time of Note Date/Time of Note DATE: 02/19/17 TIME: 15:46 Assessment/Plan Assessment/Plan Additional Assessment/Plan CAD Ischemic cardiomyopathy Anemia UTI Dyslipidemia Hemodynamically stable Continue Coreg and Lisinopril Continue Lipitor Continue Antibiotics Continue tamsulosin Consultation Date/Type/Reason Admit Date/Time February 10, 2017 at 10:43 Eyes: no complaints ENT: no complaints Respiratory: no complaints Cardiovascular: no complaints Genitourinary: no complaints Musculoskeletal: no complaints Skin: no complaints Psychological: no complaints Social History Smoking Status: Never smoker Exam/Review of Systems Vital Signs Vitals Vital Signs Date Time Temp Pulse Resp B/P Pulse Ox O2 Delivery O2 Flow Rate FiO2 02/19/17 07:28 97.4 67 18 96/61 96 02/18/17 20:00 Nasal Cannula 3.0 Intake and Output 02/18/17 02/18/17 02/19/17 15:00 23:00 07:00 Intake Total 100 ml 370 ml Output Total 1100 ml 129 ml Balance -1000 ml 241 ml Exam Constitutional: alert, oriented Head: atraumatic, normocephalic Respiratory: clear to auscultation Cardiovascular: regular rate and rhythm Gastrointestinal: nl liver, spleen, non-tender, soft Extremities: normal pulses Results Result Diagram: 02/19/17 0459 02/19/17 0459 Results 24 hrs Laboratory Tests Test 02/19/17 04:59 White Blood Count 7.4 Red Blood Count 3.63 L Hemoglobin 11.1 L Hematocrit 33.0 L Mean Corpuscular Volume 90.9 Mean Corpuscular Hemoglobin 30.6 Mean Corpuscular Hemoglobin Concent 33.6 Red Cell Distribution Width 12.8 Platelet Count 189 Mean Platelet Volume 10.3 Neutrophils % 65.1 Lymphocytes % 22.5 Monocytes % 8.6 Eosinophils % 3.1 Basophils % 0.3 Nucleated Red Blood Cells % 0.0 Neutrophils # 4.8 Lymphocytes # 1.7 Monocytes # 0.6 Eosinophils # 0.2 Basophils # 0.0 Nucleated Red Blood Cells # 0.0 Sodium Level 140 Potassium Level 3.7 Chloride Level 101 Carbon Dioxide Level 28 Anion Gap 15 # Blood Urea Nitrogen 10 Creatinine 0.58 L Glucose Level 87 Calcium Level 9.0 Medications Medications Current Medications Acetaminophen (Tylenol Tab) 650 mg Q4 PRN PO ELEVATED TEMPERATURE; Start at 15:30 Acetaminophen (Tylenol Tab) 650 mg Q4 PRN PO MILD PAIN LEVEL 1-3 Last administered on 02/13/17 17:37; Admin Dose 650 MG; Start 02/09/17 at 15:30 Atorvastatin Calcium (Lipitor) 80 mg QHS PO Last administered on 02/18/17 21: 00; Admin Dose 80 MG; Start 02/09/17 at 21:00 Docusate Sodium (Colace) 100 mg BID PRN PO CONSTIPATION Last administered on 05:26; Admin Dose 100 MG; Start 02/09/17 at 15:30 Multivitamins Therapeutic (Theragran) 1 tab DAILY PO Last administered on 09:04; Admin Dose 1 TAB; Start 02/10/17 at 09:00 Lisinopril 2.5 mg 2.5 mg DAILY PO Last administered on 02/19/17 09:16; Admin Dose 2.5 MG; Start 02/11/17 at 09:00 Meropenem (Merrem 500 Mg/ 100 ml (Pmx)) 100 ml @ 200 mls/hr Q12 IVPB Last administered on 02/19/17 09:03; Admin Dose 200 MLS/HR; Start 02/11/17 at 12:00 Carvedilol (Coreg) 1.5625 mg BID PO Last administered on 02/19/17 09:15; Admin Dose 1.5625 MG; Start 02/11/17 at 21:00 Tamsulosin HCl 0.4 mg 0.4 mg HS PO Last administered on 02/18/17 21:00; Admin Dose 0.4 MG; Start 02/12/17 at 21:00 Vancomycin HCl 250 ml @ 125 mls/hr Q12H IVPB Last administered on 02/19/17 02 :07; Admin Dose 125 MLS/HR; Start 02/15/17 at 02:00 Dextrose/Sodium Chloride (D5-1/2ns) 1,000 ml @ 75 mls/hr [id number] IV Last administered on 02/19/17 09:06; Admin Dose 75 MLS/HR; Start 02/18/17 at 10:30 Miscellaneous Information (*Rx Drug Level Order Reminder*) VANCO TROUGH AT 0, 100 ON... ONCE ONCE XX ; Start 02/20/17 at 01:00; Stop 02/20/17 at 01:01 DARYL ALMAGUER M.D. February 19, 2017 15:47
--- NOTE | 2017-02-19 17:12 | CONS ---
Date/Time of Note Date/Time of Note DATE: 02/19/17 TIME: 17:11 Assessment/Plan Assessment/Plan Chief Complaint/Hosp Course ID PROGRESS NOTE ABX DAY #9 Vanco IV + Merrem 24H INTERVAL SUMMARY * Awake & responsive, appears weak, VSS, NAD, no fevers * 02/18/17 CXR: IMPRESSION: 1. Near complete resolution of right lower lobe air space opacity compatible with resolving pneumonia. No new acute intrathoracic abnormality. PHYSICAL EXAMINATION: GENERAL: VSS, NAD HEENT: Unremarkable NECK: Trach-> midline CHEST: Equal chest rise bilaterally, without dyspnea on observation HEART: Pulse RRR ABDOMEN: Soft EXTREMITIES: Warm, SKIN: Warm, dry ID ASSESSMENT: 81 yo M w/ admitted with: 1. Resolving sepsis. 2. Healthcare-associated pneumonia, possibly ongoing aspiration===> resolving. 3. Escherichia coli extended-spectrum beta-lactamase urinary tract infection. 4. Dementia. 5. Dysphagia. ABX ALLERGIES: None to ABX CURRENT ABX: # #9 Vanco IV + Merrem ID RECOMMENDATIONS: 1. Continue current ABX until last day SUN 02/20/17 2. CXR shows PNA nearly resolved, clinically he is much improved -- 10 days ABX course sufficient. Problems: Consultation Date/Type/Reason Admit Date/Time February 10, 2017 at 10:43 Initial Consult Date Type of Consultation: ID Referring Provider: JOHN ALANIS MD Exam/Review of Systems Vital Signs Vitals Vital Signs Date Time Temp Pulse Resp B/P Pulse Ox O2 Delivery O2 Flow Rate FiO2 02/19/17 07:28 97.4 67 18 96/61 96 02/18/17 20:00 Nasal Cannula 3.0 Intake and Output 02/18/17 02/18/17 02/19/17 15:00 23:00 07:00 Intake Total 100 ml 370 ml Output Total 1100 ml 129 ml Balance -1000 ml 241 ml Results Result Diagram: 02/19/17 0459 02/19/17 0459 Results 24 hrs Laboratory Tests Test 02/19/17 04:59 White Blood Count 7.4 Red Blood Count 3.63 L Hemoglobin 11.1 L Hematocrit 33.0 L Mean Corpuscular Volume 90.9 Mean Corpuscular Hemoglobin 30.6 Mean Corpuscular Hemoglobin Concent 33.6 Red Cell Distribution Width 12.8 Platelet Count 189 Mean Platelet Volume 10.3 Neutrophils % 65.1 Lymphocytes % 22.5 Monocytes % 8.6 Eosinophils % 3.1 Basophils % 0.3 Nucleated Red Blood Cells % 0.0 Neutrophils # 4.8 Lymphocytes # 1.7 Monocytes # 0.6 Eosinophils # 0.2 Basophils # 0.0 Nucleated Red Blood Cells # 0.0 Sodium Level 140 Potassium Level 3.7 Chloride Level 101 Carbon Dioxide Level 28 Anion Gap 15 # Blood Urea Nitrogen 10 Creatinine 0.58 L Glucose Level 87 Calcium Level 9.0 Medications Medications Current Medications Acetaminophen (Tylenol Tab) 650 mg Q4 PRN PO ELEVATED TEMPERATURE; Start at 15:30 Acetaminophen (Tylenol Tab) 650 mg Q4 PRN PO MILD PAIN LEVEL 1-3 Last administered on 02/13/17 17:37; Admin Dose 650 MG; Start 02/09/17 at 15:30 Atorvastatin Calcium (Lipitor) 80 mg QHS PO Last administered on 02/18/17 21: 00; Admin Dose 80 MG; Start 02/09/17 at 21:00 Docusate Sodium (Colace) 100 mg BID PRN PO CONSTIPATION Last administered on 05:26; Admin Dose 100 MG; Start 02/09/17 at 15:30 Multivitamins Therapeutic (Theragran) 1 tab DAILY PO Last administered on 09:04; Admin Dose 1 TAB; Start 02/10/17 at 09:00 Lisinopril 2.5 mg 2.5 mg DAILY PO Last administered on 02/19/17 09:16; Admin Dose 2.5 MG; Start 02/11/17 at 09:00 Meropenem (Merrem 500 Mg/ 100 ml (Pmx)) 100 ml @ 200 mls/hr Q12 IVPB Last administered on 02/19/17 09:03; Admin Dose 200 MLS/HR; Start 02/11/17 at 12:00 Carvedilol (Coreg) 1.5625 mg BID PO Last administered on 02/19/17 09:15; Admin Dose 1.5625 MG; Start 02/11/17 at 21:00 Tamsulosin HCl 0.4 mg 0.4 mg HS PO Last administered on 02/18/17 21:00; Admin Dose 0.4 MG; Start 02/12/17 at 21:00 Vancomycin HCl 250 ml @ 125 mls/hr Q12H IVPB Last administered on 02/19/17 16 :56; Admin Dose 125 MLS/HR; Start 02/15/17 at 02:00 Dextrose/Sodium Chloride (D5-1/2ns) 1,000 ml @ 75 mls/hr [id number] IV Last administered on 02/19/17 09:06; Admin Dose 75 MLS/HR; Start 02/18/17 at 10:30 Miscellaneous Information (*Rx Drug Level Order Reminder*) VANCO TROUGH AT 0, 100 ON... ONCE ONCE XX ; Start 02/20/17 at 01:00; Stop 02/20/17 at 01:01 MARK GUZMAN NP February 19, 2017 17:12
[2017-02-19 19:59] VITALS: BP 104/62; RESP 20
[2017-02-19] MEDS: ATORVASTATIN 80 MG TAB PO SCH (20:33)
[2017-02-19] MEDS: TAMSULOSIN (SR) 0.4 MG CAP PO SCH (20:33)
[2017-02-20] MEDS: DEXTROSE 5%-0.45% NACL 1,000 ML IV SCH ×3 (02:30→15:26)
[2017-02-20] MEDS: VANCOMYCIN 1 GM in NS 250 ML IVPB SCH (02:35)
[2017-02-20 07:44] VITALS: BP 97/59; RESP 18
[2017-02-20] MEDS: MULTIVITAMINS THERAPEUTIC TAB PO SCH (08:57)
[2017-02-20] MEDS: LISINOPRIL 5 MG TAB PO SCH (08:58)
[2017-02-20] MEDS: MEROPENEM 500 MG/100 ML (PMX) 100 ML IVPB SCH (08:58)
--- NOTE | 2017-02-20 11:56 | CONS ---
Date/Time of Note Date/Time of Note DATE: 02/20/17 TIME: 11:55 Assessment/Plan Assessment/Plan Additional Assessment/Plan CAD , Ischemic cardiomyopathy Anemia UTI Dyslipidemia Hemodynamically stable Continue Coreg and Lisinopril Continue Lipitor Continue Antibiotics Continue tamsulosin Consultation Date/Type/Reason Admit Date/Time February 10, 2017 at 10:43 Type of Consultation: ID Referring Provider: JOHN ALANIS MD Exam/Review of Systems Vital Signs Vitals Vital Signs Date Time Temp Pulse Resp B/P Pulse Ox O2 Delivery O2 Flow Rate FiO2 02/20/17 07:44 97.3 76 18 97/59 96 02/18/17 20:00 Nasal Cannula 3.0 Intake and Output 02/19/17 02/19/17 02/20/17 15:00 23:00 07:00 Intake Total 100 ml 950 ml 1050 ml Balance 100 ml 950 ml 1050 ml Exam Constitutional: alert Head: atraumatic, normocephalic Neck: non-tender, supple Respiratory: clear to auscultation Cardiovascular: regular rate and rhythm Gastrointestinal: nl liver, spleen, non-tender, soft Extremities: normal pulses Results Result Diagram: 02/19/17 0459 02/19/17 0459 Results 24 hrs Laboratory Tests Test 02/20/17 01:25 Vancomycin Level Trough 17.3 Medications Medications Current Medications Acetaminophen (Tylenol Tab) 650 mg Q4 PRN PO ELEVATED TEMPERATURE; Start at 15:30 Acetaminophen (Tylenol Tab) 650 mg Q4 PRN PO MILD PAIN LEVEL 1-3 Last administered on 02/13/17 17:37; Admin Dose 650 MG; Start 02/09/17 at 15:30 Atorvastatin Calcium (Lipitor) 80 mg QHS PO Last administered on 02/19/17 20: 33; Admin Dose 80 MG; Start 02/09/17 at 21:00 Docusate Sodium (Colace) 100 mg BID PRN PO CONSTIPATION Last administered on 05:26; Admin Dose 100 MG; Start 02/09/17 at 15:30 Multivitamins Therapeutic (Theragran) 1 tab DAILY PO Last administered on 08:57; Admin Dose 1 TAB; Start 02/10/17 at 09:00 Lisinopril 2.5 mg 2.5 mg DAILY PO Last administered on 02/19/17 09:16; Admin Dose 2.5 MG; Start 02/11/17 at 09:00 Meropenem (Merrem 500 Mg/ 100 ml (Pmx)) 100 ml @ 200 mls/hr Q12 IVPB Last administered on 02/20/17 08:58; Admin Dose 200 MLS/HR; Start 02/11/17 at 12:00 Carvedilol (Coreg) 1.5625 mg BID PO Last administered on 02/19/17 20:33; Admin Dose 1.5625 MG; Start 02/11/17 at 21:00 Tamsulosin HCl 0.4 mg 0.4 mg HS PO Last administered on 02/19/17 20:33; Admin Dose 0.4 MG; Start 02/12/17 at 21:00 Dextrose/Sodium Chloride 1,000 ml @ 75 mls/hr [id number] IV Last administered on 02/19/17 09:06; Admin Dose 75 MLS/HR; Start 02/18/17 at 10:30 Vancomycin HCl/ Sodium Chloride (Vancocin/NS) 150 ml @ 75 mls/hr Q12H IVPB ; Start 02/20/17 at 15:00 DARYL ALMAGUER M.D. February 20, 2017 11:56
--- NOTE | 2017-02-20 14:35 | DS ---
Date/Time of Note Date/Time of Note DATE: 02/20/17 TIME: 14:35 Discharge Summary Admission/Discharge Info Admit Date/Time February 10, 2017 at 10:43 Discharge Date/Time Patient Condition: Stable Hospital Course ID PROGRESS NOTE ABX DAY #9 Vanco IV + Merrem 24H INTERVAL SUMMARY * Awake & responsive, appears weak, VSS, NAD, no fevers * 02/18/17 CXR: IMPRESSION: 1. Near complete resolution of right lower lobe air space opacity compatible with resolving pneumonia. No new acute intrathoracic abnormality. PHYSICAL EXAMINATION: GENERAL: VSS, NAD HEENT: Unremarkable NECK: Trach-> midline CHEST: Equal chest rise bilaterally, without dyspnea on observation HEART: Pulse RRR ABDOMEN: Soft EXTREMITIES: Warm, SKIN: Warm, dry ID ASSESSMENT: 81 yo M w/ admitted with: 1. Resolving sepsis. 2. Healthcare-associated pneumonia, possibly ongoing aspiration===> resolving. 3. Escherichia coli extended-spectrum beta-lactamase urinary tract infection. 4. Dementia. 5. Dysphagia. ABX ALLERGIES: None to ABX CURRENT ABX: # #9 Vanco IV + Merrem ID RECOMMENDATIONS: 1. Continue current ABX until last day SUN 02/20/17 2. CXR shows PNA nearly resolved, clinically he is much improved -- 10 days ABX course sufficient. Home Meds Reported Medications Hydrocodone/Acetaminophen ([place] 5-325 Tablet) 1 Each Tablet, 1 EACH PO Q6 Y for MOD, TAB HOLD FOR SEDATION HOLD IF RR IS 12 OR BELOW AND NOTIFY MD/CLINICAL LAB SCIENTIST 02/09/17 Multivitamins* (Theragran*) 1 Tab Tab, 1 TAB PO DAILY, TAB 02/09/17 Docusate Sodium* (Docusate Sodium*) 100 Mg Capsule, 100 MG PO BID Y for CONSTIPATION, #60 CAP 02/09/17 Carvedilol* (Carvedilol*) 3.125 Mg Tablet, 3.125 MG PO BID, #60 TAB 02/09/17 Atorvastatin* (Atorvastatin*) 80 Mg Tablet, 80 MG PO QHS, #30 TAB 02/09/17 Aspirin (Low Dose Aspirin) 81 Mg Tablet.dr, 81 MG PO DAILY, #30 TAB 02/09/17 Acetaminophen* (Acetaminophen*) 650 Mg Tablet, 650 MG PO Q4 Y for ELEVATED TEMPERATURE, #30 TAB 02/09/17 Acetaminophen* (Acetaminophen*) 650 Mg Tablet, 650 MG PO Q4 Y for MILD PAIN LEVEL 1-3, #30 TAB 02/09/17 Primary Care Provider Jax Sanders MD Pending Labs Laboratory Tests Test 02/20/17 01:25 Vancomycin Level Trough 17.3ug/ml (10.0-20.0) DANY MCKEON February 20, 2017 14:35
[2017-02-20] MEDS ORDERED: VANCOMYCIN 750 MG in SOD CHLORIDE 0.9% 150 ML IVPB SCH (15:00)
--- NOTE | 2017-02-20 16:09 | CONS ---
Date/Time of Note Date/Time of Note DATE: 02/20/17 TIME: 16:06 Assessment/Plan Assessment/Plan Chief Complaint/Hosp Course ID PROGRESS NOTE ABX DAY #10 Vanco IV + Merrem 24H INTERVAL SUMMARY * Awake & responsive, tells me he wants his nurse to help him, facial droop = chronic * 02/18/17 CXR: IMPRESSION: 1. Near complete resolution of right lower lobe air space opacity compatible with resolving pneumonia. No new acute intrathoracic abnormality. PHYSICAL EXAMINATION: GENERAL: VSS, NAD HEENT: Unremarkable NECK: Trach-> midline CHEST: Equal chest rise bilaterally, without dyspnea on observation HEART: Pulse RRR ABDOMEN: Soft EXTREMITIES: Warm, SKIN: Warm, dry ID ASSESSMENT: 81 yo M w/ admitted with: 1. Resolving sepsis. 2. Healthcare-associated pneumonia, possibly ongoing aspiration===> resolving. 3. Escherichia coli extended-spectrum beta-lactamase urinary tract infection. 4. Dementia. 5. Dysphagia. ABX ALLERGIES: None to ABX CURRENT ABX: # 10 Vanco IV + Merrem ID RECOMMENDATIONS: 1. DC ABX today SUN 02/20/17 = LAST DAY 2. CXR shows PNA nearly resolved, clinically he is much improved -- 10 days ABX course sufficient. 3. May DC off ABX when cleared by primary . Problems: Consultation Date/Type/Reason Admit Date/Time February 10, 2017 at 10:43 Type of Consultation: ID Referring Provider: JOHN ALANIS MD Exam/Review of Systems Vital Signs Vitals Vital Signs Date Time Temp Pulse Resp B/P Pulse Ox O2 Delivery O2 Flow Rate FiO2 02/20/17 07:44 97.3 76 18 97/59 96 02/18/17 20:00 Nasal Cannula 3.0 Intake and Output 02/19/17 02/19/17 02/20/17 15:00 23:00 07:00 Intake Total 100 ml 950 ml 1050 ml Balance 100 ml 950 ml 1050 ml Results Result Diagram: 02/19/17 0459 02/19/17 0459 Results 24 hrs Laboratory Tests Test 02/20/17 01:25 Vancomycin Level Trough 17.3 Medications Medications Current Medications Acetaminophen (Tylenol Tab) 650 mg Q4 PRN PO ELEVATED TEMPERATURE; Start at 15:30 Acetaminophen (Tylenol Tab) 650 mg Q4 PRN PO MILD PAIN LEVEL 1-3 Last administered on 02/13/17 17:37; Admin Dose 650 MG; Start 02/09/17 at 15:30 Atorvastatin Calcium (Lipitor) 80 mg QHS PO Last administered on 02/19/17 20: 33; Admin Dose 80 MG; Start 02/09/17 at 21:00 Docusate Sodium (Colace) 100 mg BID PRN PO CONSTIPATION Last administered on 05:26; Admin Dose 100 MG; Start 02/09/17 at 15:30 Multivitamins Therapeutic (Theragran) 1 tab DAILY PO Last administered on 08:57; Admin Dose 1 TAB; Start 02/10/17 at 09:00 Lisinopril 2.5 mg 2.5 mg DAILY PO Last administered on 02/19/17 09:16; Admin Dose 2.5 MG; Start 02/11/17 at 09:00 Meropenem (Merrem 500 Mg/ 100 ml (Pmx)) 100 ml @ 200 mls/hr Q12 IVPB Last administered on 02/20/17 08:58; Admin Dose 200 MLS/HR; Start 02/11/17 at 12:00 Carvedilol (Coreg) 1.5625 mg BID PO Last administered on 02/19/17 20:33; Admin Dose 1.5625 MG; Start 02/11/17 at 21:00 Tamsulosin HCl 0.4 mg 0.4 mg HS PO Last administered on 02/19/17 20:33; Admin Dose 0.4 MG; Start 02/12/17 at 21:00 Dextrose/Sodium Chloride 1,000 ml @ 75 mls/hr [id number] IV Last administered on 02/20/17 07:00; Admin Dose 75 MLS/HR; Start 02/18/17 at 10:30 Vancomycin HCl/ Sodium Chloride (Vancocin/NS) 150 ml @ 75 mls/hr Q12H IVPB ; Start 02/20/17 at 15:00 MARK GUZMAN NP February 20, 2017 16:09
== END 2017-02-20 18:40 | DRG 871 ==
LOC: E/R 09:54 → MS2 11:59 → OBSVTOIN 02-10 10:43
PROVIDERS: ADMIT Internal Medicine; ATTEND Internal Medicine
PROC: 0DH63UZ Insertion of Feeding Device into Stomach, Percutaneous Approach (ICD-10-PCS; principal; 2017-02-18 08:00)
DX: A41.9 Sepsis, unspecified organism (principal); J69.0 Pneumonitis due to inhalation of food and vomit; G93.41 Metabolic encephalopathy; I95.9 Hypotension, unspecified; R13.10 Dysphagia, unspecified; N39.0 Urinary tract infection, site not specified; F03.90 Unspecified dementia, unspecified severity, without behavioral disturbance, psychotic disturbance, mood disturbance, and anxiety; R31.0 Gross hematuria; I25.5 Ischemic cardiomyopathy; D64.9 Anemia, unspecified; B96.20 Unspecified Escherichia coli [E. coli] as the cause of diseases classified elsewhere; E78.5 Hyperlipidemia, unspecified; I10 Essential (primary) hypertension; I25.10 Atherosclerotic heart disease of native coronary artery without angina pectoris; I25.2 Old myocardial infarction; R63.4 Abnormal weight loss; Z68.24 Body mass index [BMI] 24.0-24.9, adult; Y95 Nosocomial condition
CPT/HCPCS: 36415; 71010; 74176; 74230; 80048; 80053; 80061; 80202; 81001; 81003; 83690; 83880; 84484; 85025; 85610; 85730; 87040; 87081; 87086; 88104; 92526; 92610; 92611; 93005; 93306; 96374; G0378; J0690; J0696; J2185; J3370; J7030; J7040; J7042; J7050